=== PATIENT | male | born 1975 | race Hispanic/Latino ===

== ENCOUNTER 2017-09-27 17:47 | Inpatient (IN) | payer OTHER, SELFPAY ==
[2017-09-27] MEDS ORDERED: cloNIDine HCl 0.1 MG TAB ONE (18:23)
[2017-09-27 18:38] LABS: Absolute Lymphocytes (CBC) 2.3 K/uL (0.7-4.9); Absolute Neutrophil 7.6 K/uL (1.8-8.0); Basophils % 1.1 % (0-1.3); Eosinophils % 0.8 % (0-4.4); Hematocrit 41.1 % (39.6-49.0); Lymphocytes % 20.6 % (15.3-44.8); MCH 30.6 pg (27.0-35.0); MCV 87.8 fL (80-100); MPV 8.1 fL (7.6-11.3); RBC Red Blood Cell Count 4.68 M/uL (4.33-5.43)
[2017-09-27 18:46] LABS: Potassium 2.8 mEq/L (3.6-5.0)
--- NOTE | 2017-09-27 19:04 | RAD REPORT ---
EXAM DESCRIPTION: CT - Head Brain Wo Cont - 09/27/2017 6:43 pm CLINICAL HISTORY: Hypertension, headache COMPARISON: None. TECHNIQUE: Axial 5 mm thick images of the head were obtained without IV contrast. All CT scans are performed using dose optimization technique as appropriate and may include automated exposure control or mA/KV adjustment according to patient size. FINDINGS: No intracranial hemorrhage, mass, edema or shift of mid-line structures. No acute infarcti on changes seen. No abnormal extra-axial fluid collections. Ventricles are normal. Mastoid air cells and visualized portions of the paranasal sinuses are clear. No acute bony findings. IMPRESSION: Negative non-contrast CT head examination.
[2017-09-27] MEDS ORDERED: LABETALOL 20 MG/4ML SYRINGE IV ONE (19:20)
[2017-09-27] MEDS ORDERED: POTASSIUM CL SA 10 MEQ TAB PO ONE (19:20)
--- NOTE | 2017-09-27 19:23 | EDPHYS ---
Physician Documentation [facility] Name: Manjinder Vazquez Age: 42 yrs Sex: Male : 1975 Arrival Date: 09/27/2017 Time: 17:54 Bed 4 Private MD: ED Physician Mohamud Romero HPI: 09/27 18:31 This 42 yrs old Male presents to ER via Ambulatory with complaints of BP rn 260/[address] NEVAREZ. 18:31 + elevated blood pressure, headache, a couple of minutes of chest pressure, hasn't rn taken his lisinopril for 4 months. . Onset: The symptoms/episode began/occurred at an unknown time. Severity of symptoms: At their worst the symptoms were moderate. The patient has experienced similar episodes in the past. The patient has been recently seen by a physician:. Historical: - Allergies: 18:05 No Known Allergies; hb - Home Meds: 18:05 None [Active]; hb - PMHx: 18:05 Hypertension; hb - PSHx: 18:05 knee - LEFT; hb - Immunization history:: Adult Immunizations up to date. - Social history:: Smoking status: Patient uses tobacco products, denies chronic smoking, but will smoke occasionally. - Family history:: not pertinent. - Hospitalizations: : No recent hospitalization is reported. ROS: 18:31 Constitutional: Negative for fever, chills, and weight loss, Eyes: Negative for injury, rn pain, redness, and discharge, Neck: Negative for injury, pain, and swelling, Cardiovascular: Negative for palpitations, and edema, Respiratory: Negative for shortness of breath, cough, wheezing, and pleuritic chest pain, Abdomen/GI: Negative for abdominal pain, nausea, vomiting, diarrhea, and constipation, MS/Extremity: Negative for injury and deformity, Skin: Negative for injury, rash, and discoloration, Neuro: Negative for weakness, numbness, tingling, and seizure. Exam: 18:31 Constitutional: This is a well developed, well nourished patient who is awake, alert, rn and in no acute distress. Head/Face: Normocephalic, atraumatic. Eyes: Pupils equal round and reactive to light, extra-ocular motions intact. Lids and lashes normal. Conjunctiva and sclera are non-icteric and not injected. Cornea within normal limits. Periorbital areas with no swelling, redness, or edema. Neck: Trachea midline, no thyromegaly or masses palpated, and no cervical lymphadenopathy. Supple, full range of motion without nuchal rigidity, or vertebral point tenderness. No Meningismus. Cardiovascular: Regular rate and rhythm with a normal S1 and S2. No gallops, murmurs, or rubs. Normal PMI, no JVD. No pulse deficits. Respiratory: Lungs have equal breath sounds bilaterally, clear to auscultation and percussion. No rales, rhonchi or wheezes noted. No increased work of breathing, no retractions or nasal flaring. Abdomen/GI: Soft, non-tender, with normal bowel sounds. No distension or tympany. No guarding or rebound. No evidence of tenderness throughout. MS/ Extremity: Pulses equal, no cyanosis. Neurovascular intact. Full, normal range of motion. Equal circumference. Neuro: Awake and alert, GCS 15, oriented to person, place, time, and situation. Cranial nerves II-XII grossly intact. Motor strength 5/5 in all extremities. Sensory grossly intact. Cerebellar exam normal. Normal gait. Vital Signs: 18:05 BP 237 / 166; Pulse 88; Resp 16; Temp 97.9; Pulse Ox 100% on R/A; Weight 90.72 kg (R); hb Height 5 ft. 9 in. (175.26 cm); Pain 9/10; 18:59 BP 230 / 158; Pulse 85; Resp 18; Pulse Ox 97% ; sv 19:45 BP 198 / 126; Pulse 77; Resp 19; Pulse Ox 99% on R/A; ea 20:34 BP 170 / 131; Pulse 72; Resp 16; Pulse Ox 98% on R/A; Pain 4/10; ea 21:04 BP 166 / 130; Pulse 72; Resp 18; Temp 98(O); Pulse Ox 98% on R/A; ea 18:05 Body Mass Index 29.54 (90.72 kg, 175.26 cm) hb MDM: 18:11 Patient medically screened. rn 19:16 ED course: Notified Dr. Nevarez of admission.. rn 19:20 Differential Diagnosis malignant hypertension, renal failure. rn 19:20 Data reviewed: vital signs, nurses notes, lab test result(s), EKG, radiologic studies, rn CT scan, and as a result, I will admit patient. Counseling: I had a detailed discussion with the patient and/or guardian regarding: the historical points, exam findings, and any diagnostic results supporting the discharge/admit diagnosis, lab results, radiology results, the need for further work-up and treatment in the hospital. Response to treatment: the patient's symptoms have mildly improved after treatment, and as a result, I will admit patient. Admission orders: after a detailed discussion of the patient's condition and case, the admit orders are written by me. 09/27 18:21 Order name: CBC with Diff; Complete Time: 18:54 rn 09/27 18:21 Order name: Basic Metabolic Panel; Complete Time: 18:54 rn 09/27 18:21 Order name: CT Head Brain wo Cont; Complete Time: 19:13 rn 09/27 18:21 Order name: Troponin (emerg Dept Use Only); Complete Time: 18:54 09/27 19:06 Order name: Urine Dipstick--Ancillary (enter results) em 09/27 19:20 Order name: ETOH Level rn 09/27 18:21 Order name: IV Start; Complete Time: 18:22 rn 09/27 18:21 Order name: EKG; Complete Time: 18:22 rn 09/27 18:21 Order name: EKG - Nurse/Tech; Complete Time: 18:22 rn 09/27 19:02 Order name: XRAY Chest (1 view) rn 09/27 20:23 Order name: RAD EDMS Administered Medications: 09:21 Drug: Labetalol 5 mg Route: IVP; Infused Over: 2 mins; Site: right antecubital; ea 20:35 Follow up: Response: No change in condition; Blood pressure is lowered ea 18:29 Drug: cloNIDine 0.2 mg Route: PO; sv 19:05 Follow up: Response: No adverse reaction sv 19:20 Drug: Potassium Chloride 40 mEq Route: PO; ea 20:00 Follow up: Response: No adverse reaction ea Disposition: 09/27/17 19:22 Hospitalization ordered by Clinton Nevarez for Inpatient Admission. Preliminary diagnosis are Malignant Hypertension, Acute kidney failure. - Bed requested for Telemetry/MedSurg (Inpatient). - Status is Inpatient Admission. ea - Condition is Stable. - Problem is new. - Symptoms have improved. UTI on Admission? No Signatures: Dispatcher [employer] Jennifer Gil, RN Jazmin Altamirano, RN Mohamud Turcios MD MD rn Baxter, Heather, RN RN hb Antunez, Elena, RN RN ea Corrections: (The following items were deleted from the chart) 19:32 19:22 Hospitalization Ordered by Clinton Nevarez MD for Inpatient Admission. Preliminary diagnosis is Malignant Hypertension; Acute kidney failure. Bed requested for Telemetry/MedSurg (Inpatient). Status is Inpatient Admission. Condition is Stable. Problem is new. Symptoms have improved. UTI on Admission? No. rn 21:15 19:32 09/27/2017 19:22 Hospitalization Ordered by Clinton Nevarez MD for Inpatient ea Admission. Preliminary diagnosis is Malignant Hypertension; Acute kidney failure. Bed requested for Telemetry/MedSurg (Inpatient). Status is Inpatient Admission. Condition is Stable. Problem is new. Symptoms have improved. UTI on Admission? No. mw
--- NOTE | 2017-09-27 19:23 | ER ---
Nurse's Notes [facility] Name: Manjinder Vazquez Age: 42 yrs Sex: Male : 1975 Arrival Date: 09/27/2017 Time: 17:54 Bed 4 Private MD: Diagnosis: Malignant Hypertension;Acute kidney failure Presentation: 09/27 18:02 Presenting complaint: Patient states: Sent by Dr. Ba for BP 260/70 and headache. hb Hx HTN, has not taken medication in several months. 18:02 Method Of Arrival: Ambulatory 18:02 Transition of care: patient was received from another setting of care (ambulatory primary care physician practice), Dr. Nevarez. Onset of symptoms. 18:02 Acuity: THANIA 2 hb 18:20 Initial Sepsis Screen: Does the patient meet any 2 criteria? No. Patient's initial sv sepsis screen is negative. Does the patient have a suspected source of infection? No. Patient's initial sepsis screen is negative. Care prior to arrival: None. Historical: - Allergies: 18:05 No Known Allergies; hb - Home Meds: 18:05 None [Active]; hb - PMHx: 18:05 Hypertension; hb - PSHx: 18:05 knee - LEFT; hb - Immunization history:: Adult Immunizations up to date. - Social history:: Smoking status: Patient uses tobacco products, denies chronic smoking, but will smoke occasionally. - Family history:: not pertinent. - Hospitalizations: : No recent hospitalization is reported. Screenin:20 Abuse screen: Denies threats or abuse. Denies injuries from another. Nutritional sv screening: No deficits noted. Tuberculosis screening: No symptoms or risk factors identified. Fall Risk None identified. Assessment: 18:20 General: Appears in no apparent distress. uncomfortable, Behavior is calm, cooperative, sv appropriate for age. General: Reports that he lost a lot of weight months ago and decided to stop taking his BP medications because he thought he was better. Pain: Complains of pain in scalp Pain does not radiate. Pain currently is 9 out of 10 on a pain scale. Quality of pain is described as throbbing, Pain began "for about 2 weeks" Is continuous, Alleviated by nothing. Neuro: Level of Consciousness is awake, alert, obeys commands, Oriented to person, place, time, situation, Moves all extremities. Full function Gait is steady, Speech is normal, Facial symmetry appears normal, Facial symmetry: tongue is midline, Pupils are PERRLA, Reports headache occipital area, weakness since about 2 weeks Denies blurred vision dizziness, numbness. Cardiovascular: Patient's skin is warm and dry. Pulses are 3+ in right radial artery and left radial artery Rhythm is sinus rhythm Chest pain is denied. Respiratory: Airway is patent Respiratory effort is even, unlabored, Respiratory pattern is regular, symmetrical. GI: No signs and/or symptoms were reported involving the gastrointestinal system. : No signs and/or symptoms were reported regarding the genitourinary system. EENT: No signs and/or symptoms were reported regarding the EENT system. Derm: Skin is pink, warm \\T\\ dry. Musculoskeletal: No signs and/or symptoms reported regarding the musculoskeletal system. 19:15 General: Appears in no apparent distress. uncomfortable, Behavior is calm, cooperative, ea appropriate for age, Reports states he has not been taking his blood pressure medication like he is suppose to. Pain: Complains of pain in left side of the back of head, left temporal area, right side of the back of head and right temporal area Pain does not radiate. Pain currently is 7 out of 10 on a pain scale. Quality of pain is described as throbbing, Pain began pt reports it began about 2 weeks ago on and off Is continuous. Neuro: Level of Consciousness is awake, alert, obeys commands, Oriented to person, place, time, situation, Speech is normal, Reports headache occipital area, weakness since 2 weeks ago. Cardiovascular: Patient's skin is warm and dry. Pulses are palpable in right radial artery and left radial artery Rhythm is sinus rhythm Chest pain is denied. Respiratory: Airway is patent Respiratory effort is even, unlabored, Respiratory pattern is regular, symmetrical. GI: No signs and/or symptoms were reported involving the gastrointestinal system. : No signs and/or symptoms were reported regarding the genitourinary system. EENT: No signs and/or symptoms were reported regarding the EENT system. Derm: Skin is dry, Skin is normal, Skin temperature is warm. Musculoskeletal: No signs and/or symptoms reported regarding the musculoskeletal system. 20:36 Reassessment: Patient and/or family updated on plan of care and expected duration. Pain ea level reassessed. Patient is alert, oriented x 3, equal unlabored respirations, skin warm/dry/pink. 21:01 Reassessment: Patient and/or family updated on plan of care and expected duration. Pain ea level reassessed. Patient is alert, oriented x 3, equal unlabored respirations, skin warm/dry/pink. Report given to Cat RUIZ. Vital Signs: 18:05 BP 237 / 166; Pulse 88; Resp 16; Temp 97.9; Pulse Ox 100% on R/A; Weight 90.72 kg (R); hb Height 5 ft. 9 in. (175.26 cm); Pain 9/10; 18:59 BP 230 / 158; Pulse 85; Resp 18; Pulse Ox 97% ; sv 19:45 BP 198 / 126; Pulse 77; Resp 19; Pulse Ox 99% on R/A; ea 20:34 BP 170 / 131; Pulse 72; Resp 16; Pulse Ox 98% on R/A; Pain 4/10; ea 21:04 BP 166 / 130; Pulse 72; Resp 18; Temp 98(O); Pulse Ox 98% on R/A; ea 18:05 Body Mass Index 29.54 (90.72 kg, 175.26 cm) hb ED Course: 17:54 Patient arrived in ED. mr 18:05 Arm band placed on right wrist. hb 18:08 Triage completed. hb 18:09 Jennifer Moreno RN is Primary Nurse. sv 18:11 Mohamud Romero MD is Attending Physician. rn 18:20 Patient has correct armband on for positive identification. Placed in gown. Bed in low sv position. Side rails up X2. monitoring engineer on. Pulse ox on. NIBP on. Door closed. Warm blanket given. Head of bed elevated. 18:20 Initial lab(s) drawn, by ok, sent to lab. Inserted saline lock: 18 gauge in right sv antecubital area, using aseptic technique. Blood collected. Flushed right antecubital with 5 ml normal saline. 18:42 CT Head Brain wo Cont In Process Unspecified. EDMS 18:49 CT completed. Patient tolerated procedure well. Patient moved to CT. Patient moved back or from CT. 19:22 Clinton Nevarez MD is Hospitalizing Provider. rn 19:24 Report given to Joanne RUIZ and Abby RUIZ. sv 19:40 X-ray completed. Portable x-ray completed in exam room. Patient tolerated procedure mh1 well. 19:43 Primary Nurse role handed off by Jennifer Moreno RN 20:32 Abby Berger, RN is Primary Nurse. ea 21:05 No provider procedures requiring assistance completed. Patient admitted, IV remains in ea place. Administered Medications: 09:21 Drug: Labetalol 5 mg Route: IVP; Infused Over: 2 mins; Site: right antecubital; ea 20:35 Follow up: Response: No change in condition; Blood pressure is lowered ea 18:29 Drug: cloNIDine 0.2 mg Route: PO; sv 19:05 Follow up: Response: No adverse reaction sv 19:20 Drug: Potassium Chloride 40 mEq Route: PO; ea 20:00 Follow up: Response: No adverse reaction ea Outcome: 19:22 Decision to Hospitalize by Provider. rn 21:05 Admitted to Med/surg accompanied by nurse, via wheelchair, room 206, with chart, Report ea called to Cat RUIZ 21:05 Condition: stable 21:05 Instructed on the need for admit. 21:15 Patient left the ED. ea Signatures: Dispatcher [employer] EDMS Jennifer Moreno, RN RN Pam Bonds Jazmin Clayton 1 Mohamud Romero MD MD rn Baxter, Heather, RN RN hb Jordan, Nathan nj Antunez, Elena, JOSEPH RN ea Corrections: (The following items were deleted from the chart) 18:08 18:05 BP 167 / 166; Pulse 88bpm; Resp 16bpm; Pulse Ox 100% RA; Temp 97.9F; 90.72 kg hb Reported; Height 5 ft. 9 in.; BMI: 29.5; Pain 9/10; hb
[2017-09-27 19:31] LABS: Urine Blood 1+ (NEG); Urine Glucose TRACE (NEG); Urine Protein 3+ (NEG)
--- NOTE | 2017-09-27 20:23 | RAD REPORT ---
EXAM DESCRIPTION: RAD - Chest Single View - 09/27/2017 7:42 pm CLINICAL HISTORY: Chest pain, hypertension COMPARISON: None. TECHNIQUE: AP portable chest image was obtained 1931 hours . FINDINGS: No peripheral mass or consolidation. Interstitial markings are minimally prominent believe d to be baseline. Heart and vasculature are normal. No measurable pleural effusion and no pneumothora x. No gross bony abnormality seen. No acute aortic findings suspected. IMPRESSION: No acute cardiopulmonary process.
[2017-09-27] MEDS ORDERED: ACETAMINOPHEN 500 MG TAB PO PRN (21:23)
[2017-09-27] MEDS ORDERED: ONDANSETRON 4 MG/2 ML VIAL IV PRN (21:23)
[2017-09-27] MEDS: METOPROLOL TAR 50 MG TAB PO SCH (22:31)
[2017-09-28] MEDS: cloNIDine HCl 0.1 MG TAB PO PRN ×2 (01:30→07:07)
[2017-09-28 05:01] LABS: Absolute Lymphocytes (CBC) 1.6 K/uL (0.7-4.9); Absolute Monocytes 0.6 K/uL (0.1-1.3); Absolute Neutrophil 4.1 K/uL (1.8-8.0); Basophils % 1.3 % (0-1.3); Eosinophils % 2.2 % (0-4.4); Hematocrit 35.4 % (39.6-49.0); Lymphocytes % 24.6 % (15.3-44.8); MCH 30.4 pg (27.0-35.0); MCV 89.2 fL (80-100); MPV 8.4 fL (7.6-11.3); Monocytes % 9.5 % (3.3-12.3); RBC Red Blood Cell Count 3.97 M/uL (4.33-5.43)
[2017-09-28 05:40] LABS: Potassium 3.2 mEq/L (3.6-5.0)
--- NOTE | 2017-09-28 06:37 | EKG ---
Test Date: 2017-09-27 Test Time: 18:15:49 Hole Puncher Strap: NÉSTOR MEASUREMENT RESULTS: Intervals: Rate: 92 AK: 152 QRSD: 96 QT: 374 QTc: 462 [place]: P: 38 AK: 152 QRS: -9 T: 22 INTERPRETIVE STATEMENTS: Normal sinus rhythm Minimal voltage criteria for LVH, may be normal variant Nonspecific ST abnormality Abnormal ECG No previous ECG available for comparison Electronically Signed On 09-28-17 06:36:16 CDT by Jayson Wood
--- NOTE | 2017-09-28 08:34 | RAD REPORT ---
EXAM DESCRIPTION: US - Renal Ultrasound-Complete - 09/28/2017 7:46 am CLINICAL HISTORY: Hypertension COMPARISON: None. FINDINGS: The right kidney measures 11.4 x 4.6 x 5.1 cm. The left kidney measures 11.9 x 5.4 x 5.1 cm. Cortical thickness is normal. Both kidneys show a significant increase in renal cortical echogeni city typical for medical renal disease. No hydronephrosis or suspicious renal mass. Doppler evaluation shows a symmetric blood flow pattern to each kidney. This examination is not a ded icated renal vascular scan. IMPRESSION: Medical renal disease is evident. No hydronephrosis or suspicious mass.
[2017-09-28] MEDS: METOPROLOL TAR 50 MG TAB PO SCH ×2 (09:12→22:11)
[2017-09-28] MEDS: HYDRALAZINE HCL 25 MG TABLET PO SCH ×2 (09:13→22:12)
[2017-09-28] MEDS: AMLODIPINE 10 MG TAB PO SCH (09:13)
[2017-09-28] MEDS: ASPIRIN EC 81 MG TAB PO SCH (09:14)
--- NOTE | 2017-09-28 12:49 | ECHO ---
HEIGHT: 5 ft 9 in WEIGHT: 200 lb 0 oz DATE OF STUDY: 09/28/[address]: Keagan Vizcaino MD 2-DIMENSIONAL: YES M.MODE: YES DOPPLER: YES COLOR FLOW: YES TDS: PORTABLE: DEFINITY: BUBBLE STUDY: DIAGNOSIS: CHEST PAIN, HYPERTENSION CARDIAC HISTORY: CATHERIZATION: NO SURGERY: NO PROSTHETIC VALVE: NO PACEMAKER: NO MEASUREMENTS (cm) DIASTOLIC (NORMALS) SYSTOLIC (NORMALS) IVSd 1.3 (0.6-1.2) LA Diam 3.8 (1.9-4.0) LVEF 53% LVIDd 4.7 (3.5-5.7) LVIDs 3.4 (2.0-3.5) %FS 27% LVPWd 1.5 (0.6-1.2) Ao Diam 3.3 (2.0-3.7) 2 DIMENSIONAL ASSESSMENT: RIGHT ATRIUM: NORMAL LEFT ATRIUM: DILATED RIGHT VENTRICLE: NORMAL LEFT VENTRICLE: NORMAL TRICUSPID VALVE: NORMAL MITRAL VALVE: NORMAL PULMONIC VALVE: NORMAL AORTIC VALVE: NORMAL PERICARDIAL EFFUSION: NONE AORTIC ROOT: NORMAL LEFT VENTRICULAR WALL MOTION: NORMAL DOPPLER/COLOR FLOW: WITHIN NORMAL LIMITS COMMENTS: NORMAL LEFT VENTRICULAR EJECTION FRACTION. LEFT VENTRICULAR HYPERTROPHY. DILATED LEFT ATRIUM. TECHNOLOGIST: RAMYA REED
--- NOTE | 2017-09-28 15:28 | EKG ---
Test Date: 2017-09-28 Test Time: 09:44:21 Offset Plate Preparation Supervisor: LIZZIE MEASUREMENT RESULTS: Intervals: Rate: 65 NM: 168 QRSD: 104 QT: 448 QTc: 465 [place]: P: 45 NM: 168 QRS: 11 T: 53 INTERPRETIVE STATEMENTS: Normal sinus rhythm Minimal voltage criteria for LVH, may be normal variant ST elevation, consider early repolarization, pericarditis, or injury Nonspecific ST and T wave abnormality Prolonged QT Abnormal ECG Compared to ECG 09/27/2017 18:15:49 Prolonged QT interval now present ST (T wave) deviation still present Electronically Signed On 09-28-17 15:25:49 CDT by Keagan Vizcaino
[2017-09-28 16:18] LABS: Uric Acid 6.4 mg/dL (4.8-8.7)
[2017-09-28 17:07] LABS: UR CREAT 37.6 mg/dL; UR POTASSIUM 8.4 mEq/L (25-120); UR PROTEIN 45 mg/dl (< 10)
[2017-09-28 17:11] LABS: UR SODIUM < 10 mEq/L (27-287)
--- NOTE | 2017-09-29 00:22 | CON ---
Date of Consultation: 09/28/2017 Reason For Consultation: I saw the patient on 09/28/2017 because of malignant hypertension. History Of Present Illness: Mr. Vazquez is 42 and had a history of hypertension in the past, very non compliant, used to be on clonidine. Used to be on beta-blockers, and he came in with what sounds lik e very severe hypertension with blood pressure of 230/158. He had some chest pain with hi s blood pressure. No nausea, vomiting, diaphoresis, PND, orthopnea, pedal edema. troponi n 0.04. Creatinine of 2.2. Chest x-ray was negative. CT of his head was negative. EKG showed LVH. Past Medical History: Hypertension. Allergies: NONE. Review of Systems: Negative. Social History: Negative. Family History: Negative. Medications: His present medications include metoprolol 50 b.i.d. and clonidine p.r.n. Physical Examination: Vital Signs: Blood pressure as stated earlier was 230/158. HEENT: Negative. Neck: Supple, with no bruit. Chest: Clear. Cardiac: Revealed a regular rhythm and rate with an S4 gallop. Abdomen: Benign. Extremities: Revealed no clubbing, cyanosis, or edema. Diagnostic Data: As stated earlier. Impression And Plan: Malignant hypertension secondary to noncompliance and rebound because he stoppe d his medication, especially the clonidine. I would keep him on metoprolol 50 b.i.d. I would add hy dralazine and Norvasc to his regimen. Clonidine may be better to use only as needed because of his c ompliance issue. He has an echocardiogram and a renal Doppler pending. We will see what those show prior to making final decision. LUIS/RAFAEL Voice ID: [id number] Report ID: [id number]
[2017-09-29 06:28] LABS: Thyroid Stimulating Hormone 2.66 uIU/mL (0.34-5.60)
[2017-09-29] MEDS: AMLODIPINE 10 MG TAB PO SCH (08:50)
[2017-09-29] MEDS: ASPIRIN EC 81 MG TAB PO SCH (08:51)
[2017-09-29] MEDS: HYDRALAZINE HCL 25 MG TABLET PO SCH ×2 (08:51→20:56)
[2017-09-29] MEDS: METOPROLOL TAR 50 MG TAB PO SCH ×2 (08:51→20:56)
[2017-09-29] MEDS: NA CHLORIDE 0.9% 1,000 ML IV SCH (12:00)
[2017-09-29] MEDS: cloNIDine HCl 0.1 MG TAB PO PRN (16:40)
--- NOTE | 2017-09-30 02:47 | CON ---
Reason For Consultation: Hypertension, elevated BUN and creatinine. History Of Present Illness: This is a pleasant 42-year-old gentleman with significant past medical h istory of hypertension according to him, diagnosed 3 years back, poor compliant with medication. Camilla rasmussen stopped his medication 3 months back. Patient came to the hospital because of headache without any nausea, any vomiting. Found to have elevated blood pressure, systolic above 200, diastolic above 120. Primary workup showed elevated BUN and creatinine. For that reason, we have been consulted. Patient denied taking nonsteroidal nor IV contrast. Patient is feeling thirsty. Patient used to be on clonidine, but apparently according to him for the last few months he is not taking it. Past Medical History: Hypertension. Social History: Active smoker. Active alcohol. Denies drug abuse. Family History: Positive for hypertension. Past Surgical History: Negative. Allergies: NO KNOWN DRUG ALLERGIES. Review of Systems: Head and Neck: Has headache. GI: Poor intake. : No polyuria. No dysuria. No hematuria. FAMILY EDUCATOR: Not applicable. Respiratory: No shortness of breath. Cardiovascular: No leg swelling. Endocrine: No polydipsia. Skin: No rash. Physical Examination: Vital Signs: When I saw the patient, blood pressure 143/96, pulse of 68, afebrile. Patient had good urine output of 1600 over the last 12 hours. Chest: Clear to auscultation. Heart: S1, S2. Regular. No murmur. No gallop. Abdomen: Soft, nontender. Extremities: Trace edema. Laboratory Data: Sodium 138, potassium 3.2, bicarb 31, BUN 26, creatinine 2.2, calcium 8.8. Cardiac enzyme negative. CK 177. Cortisol of 10. TSH of 2.6. WBC 6.6, H and H 12/35.4, platelets 205. U rinalysis, specific gravity of 10.20. Total protein of 45. Creatinine 37. Sodium less than 10, pot assium 8.3. Plasma alcohol level less than 10. Assessment And Plan: Acute kidney injury on chronic kidney disease, normal-sized kidney, proteinuric , nonnephrotic, possible toxic acute tubular necrosis secondary to sepsis. Possible rhabdo. Obstruc tion has been ruled out. Mostly, he has underlying disease of hypertension, nephrosclerosis. 1.Given the acute kidney injury, I will hold on any SAVAGE inhibitor or ARB. 2.We are going to plan to have waiting by Wednesday. I am going to need to go by some right now, so I can I adjust it. We will monitor. 3.I going to go ahead and send for full workup including the protein, creatinine, PTH to evaluate th e chronicity. There is no significant proteinuria and there is no anemia. I doubt to be any light c ya disease. We will follow up. 4.Hypertension, given the hypokalemia, alkalosis, and in the absence of any Aldactone, I am going to send for plasma renin activity and aldosterone to rule out any primary hypertension secondary to eit her renal artery stenosis or ARB. We will follow up. 5.Urinary tract infection. Continue current antibiotic. We will follow up with the primary. Current Medications: 1.Amlodipine. 2.Clonidine 0.1 p.r.n. 3.Hydralazine 50. 4.Metoprolol 50. 5.Tylenol. Thank you Dr Bonilla for allowing us to participate in the care of your patient. SAMMI Voice ID: [id number] Report ID: [id number]
[2017-09-30 03:18] LABS: UR POTASSIUM 15.2 mEq/L (25-120)
--- NOTE | 2017-09-30 04:21 | HP ---
Date of Admission: 09/27/2017 Chief Complaint: Malignant hypertension. History Of Present Illness: The patient presented to the office for a complaint of headache and prob able blood pressure problem. He had this blood pressure problem, hypertensive approximately a year a go, at which time he was put on medication. He stated he had not taken his medicines for a number of months now. He was feeling relatively okay, working out of the area and then he started getting a h eadache. He had not checked his blood pressure but the headache became severe enough that he was con cerned and that is why he presented to the office at which time two blood pressures were repeated and both were markedly elevated at 250/165 on one occasion and 270/160 on the second occasion. Due to th is, he was sent to the ER for aggressive care and probable admission. Past Social History: The patient has a history of alcohol intake, which he states he has cut down co nsiderably since his episode of hypertension last year otherwise, he has been in good general health. Family History: Questionable for hypertension. Social History: As above. Physical Examination: General: on examination patient is a middle-aged male, obviously uncomfortable. Vital Signs: The blood pressure is markedly elevated with the remainder of his vital signs normal. Head and neck: Normocephalic. Pupils are equal, reactive to light and accommodation. Fundi negativ e. Trachea midline. Thyroid not palpable. ENT: Negative. Chest: Clear to percussion and auscultation. Cardiovascular: PMI midclavicular line. Heart: Sounds normal. Peripheral pulses present and equal bilaterally. Abdomen: No organomegaly. Bowel sounds present. Extremities: Good tone and movement bilaterally. Reflexes physiologic. Rectal: Deferred. Impression: Malignant hypertension. Plan: Patient will be admitted, observed, treated with p.r.n. clonidine and various blood pressure m edicine in attempt to lower the pressure to reasonable level. He will require some IV beta blockers and clonidine in the ER. Cardiology will also be consulted. Blood pressure is now improved consider ably, although still not back to what is considered normal. He has been seen by Nephrology, workup e nsued which showed some renal abnormalities secondary to the hypertension. HR/MODL Voice ID: [id number]
[2017-09-30 05:54] LABS: Albumin 2.8 g/dL (3.2-5.5); Phosphorus 3.5 mg/dL (2.5-4.3); Potassium 3.8 mEq/L (3.6-5.0)
[2017-09-30] MEDS: ASPIRIN EC 81 MG TAB PO SCH (09:32)
[2017-09-30] MEDS: METOPROLOL TAR 50 MG TAB PO SCH ×2 (09:32→21:43)
[2017-09-30] MEDS: NA CHLORIDE 0.9% 1,000 ML IV SCH (09:32)
[2017-09-30] MEDS: HYDRALAZINE HCL 25 MG TABLET PO SCH ×2 (09:32→21:44)
[2017-09-30] MEDS: AMLODIPINE 10 MG TAB PO SCH (09:32)
[2017-09-30] MEDS: SPIRONOLACTONE 25 MG TABLET PO SCH (09:32)
[2017-09-30 11:15] LABS: UR POTASSIUM 17.3 mEq/L (25-120)
--- NOTE | 2017-09-30 16:45 | DS ---
Date of Discharge: 09/30/2017 Consultants: Dr. Vizcaino, Cardiology; Dr. Blancas, Nephrology. Primary Care Physician: Dr. Nevarez. Admitting Diagnosis: Malignant hypertension. Discharge Diagnoses: 1.Malignant hypertension. 2.Acute on chronic kidney disease. 3.Obesity, BMI 29.5. Hospital Course: The patient is a 42-year-old male, who comes into the hospital for malignant hypert ension. He was sent to Dr. Nevarez's office for complaint of headache. His blood pressure was found to be markedly elevated on 250 to 165 and 270/160. He was sent to the ER for further evaluation and treatment. The patient was admitted, started on IV medications to lower his blood pressure. The stevo crouch was seen by Cardiology and Nephrology. Echocardiogram was done, which showed left ventricular hypertrophy, otherwise ejection fraction was 53%. The patient had workup done for acute kidney injur y. Renal ultrasound was also done, which showed mild renal disease evident. No hydronephrosis or mejía spicious mass. The patient's home medications were adjusted. The patient's blood pressure improved. His white count normalized. His electrolytes were corrected. His creatinine improved. The mayela t was then cleared for discharge from financial consultant's standpoint. He was able to ambulate, tolerating d iet. Medications: As per medication reconciliation list. Followup: Follow up with primary care physician, Dr. Nevarez in 2-3 days. The patient was being cov ered by the hospitalist service while he is out of town. Follow up with cooking instructor, Dr. Wood in 2 weeks. Follow up with supervisor furnace room, Dr. Blancas in 2 weeks. Return to ER for worsening condition . Diet: Renal. Activity: As tolerated. Total time spent discharging the patient was 31 minutes. Physical Examination: General: Awake, alert, oriented, no acute distress. CV: S1, S2. No murmurs. Respiratory: Moving air well bilaterally. Abdomen: Soft, nontender, nondistended. Positive bowel sounds. Extremities: No clubbing, cyanosis, edema. Neurologic: Nonfocal. SA/MODL Voice ID: [id number] Report ID: [id number]
[2017-09-30 19:05] LABS: Uric Acid 5.2 mg/dL (4.8-8.7)
[2017-09-30 19:50] LABS: Urine Appearance CLEAR; Urine Bilirubin NEGATIVE (NEG); Urine Blood NEGATIVE (NEG); Urine Color YELLOW; Urine Glucose TRACE (NEG); Urine Protein 2+ (NEG); Urine Urobilinogen 0.2 mg/dL (0.2-1.0); Urine pH 7.5 (5.0-7.0)
[2017-09-30 22:16] LABS: Urine Bacteria <20 /HPF (NONE SEEN); Urine Culture Reflex Order NOT NEEDED; Urine RBC <5 /HPF (NONE SEEN)
--- NOTE | 2017-10-01 00:15 | PN ---
Date of Progress Note: 09/30/2017 Chief Complaint: Elevated BUN and creatinine, malignant hypertension. History Of Present Illness: The patient presented to the hospital because of severe hypertension, generalized weakness. He was started on blood pressure medication. Apparently, he developed severe hypertensive episode due to rebound from clonidine withdrawal secondary to noncompliance. The patient was complaining of headache, but he did not have nausea or vomiting. Systolic blood pressure was over 200 and diastolic over 120. Blood pressure has been improving with current treatment. He was found to have elevated BUN and creatinine. He has nonoliguric urine output and does not have metabolic acidosis. He was found to have hypokalemia. Apparently, on previous occasion, he was to take spironolactone. On arrival to the hospital, potassium level was 2.8. The patient received replacement and potassium improved to 3.8. Spironolactone was resumed and the patient had cortisol and aldosterone evaluated and results are pending. The patient had a kidney ultrasound done, it did not show hydronephrosis. Renal artery Doppler was ordered and results are not back yet. Review of Systems: Denies fever or chills. Physical Examination: Lungs: Clear to auscultation bilaterally. Heart: S1, S2. Abdomen: Soft, benign. Extremities: No edema. Imaging: Right kidney 11.4 cm, left kidney 11.9 cm. Cortical thickness is within normal limits. Both kidneys show significant increase in renal echogenicity, typical for medical renal disease. Doppler evaluation showed symmetric flow pattern to each kidney. Examination is not dedicated renal vascular scan, and because of that, dedicated renal vascular scan to rule out renal artery stenosis. Laboratory Work: Sodium 140, potassium 3.8, chloride 104, CO2 of 31, BUN 29, creatinine 2.09, estimated GFR 35, albumin 2.8. Impression And Plan: The patient presented to the hospital with severe hypertension. Renal ultrasound showed increased echogenicity corresponding with chronic kidney disease. The patient was found to have hypoalbuminemia and lab work was ordered to rule out nephrotic syndrome and check for monoclonal gammopathy of unknown significance. Serology tests were ordered to rule out hepatitis and related glomerulonephritis, HIV nephropathy, as well as to screen for active urinary sediment. Severe hypertension. Adjust blood pressure medication for adequate blood pressure control with gradual adjustment of medication. The patient will need comprehensive workup for abnormal BUN and creatinine to rule out glomerulonephritis. The patient may need renal biopsy. Serology workup was ordered and pending. Continue IV fluids and p.o. hydration. Monitor renal panel and electrolytes. I spent total 36 min including 26 min to coordinate care plan. REFUGIO/RAFAEL Voice ID: [id number] Report ID: [id number] MTDD
[2017-10-01] MEDS: NA CHLORIDE 0.9% 1,000 ML IV SCH (04:46)
[2017-10-01 05:12] LABS: Phosphorus 2.9 mg/dL (2.5-4.3); Potassium 4.6 mEq/L (3.6-5.0)
[2017-10-01] MEDS: ASPIRIN EC 81 MG TAB PO SCH (08:57)
[2017-10-01] MEDS: METOPROLOL TAR 50 MG TAB PO SCH (08:57)
[2017-10-01] MEDS: SPIRONOLACTONE 25 MG TABLET PO SCH (08:57)
[2017-10-01] MEDS: AMLODIPINE 10 MG TAB PO SCH (08:57)
[2017-10-01] MEDS: HYDRALAZINE HCL 25 MG TABLET PO SCH (08:57)
--- NOTE | 2017-10-01 11:15 | RAD REPORT ---
EXAM DESCRIPTION: - Abdomen Pelvis Scan US - 10/01/2017 10:43 am CLINICAL HISTORY: Malignant hypertension. COMPARISON: None. FINDINGS: The right kidney measures 12 cm with an increased echotexture. The left kidney measures 11 cm with an increased echotexture. Hydronephrosis is not seen. The velocity of the right renal artery equals 48 cm/sec. The velocity of the left renal artery equals 49 cm/sec. Renal artery aorta ratios are within normal l imits. IMPRESSION: 1. Increased renal echotexture consistent with parenchymal disease. 2. No hydronephrosis. 3. No sonographic evidence of renal arterial stenosis.
--- NOTE | 2017-10-01 13:52 | PN ---
Date of Progress Note: 10/01/2017 Subjective: The patient seen and examined, chart reviewed, and case discussed with RN. The patient was discharged yesterday. However, nephrology wished to do a renal artery Doppler, therefore, the pa tient was held. A 24-hour urine results also pending. Review of Systems: Negative except as above. Medications: Reviewed. Physical Examination: Vital Signs: Temperature 98.1, heart rate 72, blood pressure 170/97, respirations 16, and O2 98% on room air. General: Awake, alert, oriented x3, not in any acute distress. Obese male. CV: S1, S2. No murmurs. Regular rate and rhythm. Peripheral pulses present bilaterally. Respiratory: Moving air well bilaterally. No wheezing. No stridor. No use of accessory muscles Ga strointestinal: Abdomen is soft, nontender, nondistended. Positive bowel sounds. Extremities: No clubbing, cyanosis, edema. Neurologic: Nonfocal. Laboratory Data: Sodium 139, potassium 4.2, chloride 105, CO2 30, BUN 25, creatinine 1.94, glucose 1 08, calcium 8.8, and albumin 3. Renal artery ultrasound is pending. Assessment And Plan: A 42-year-old male with; 1.Malignant hypertension, improved, on multiple medications. Renal Doppler ultrasound pending. 2.Severe chronic kidney disease. Monitor creatinine, improving. 3.Obesity, body mass index 29.5. 4.Hypertensive heart disease. Echo shows ventricular hypertrophy. /RAFAEL Voice ID: [id number] Report ID: [id number]
--- NOTE | 2017-10-01 23:13 | PN ---
Date of Progress Note: 10/01/2017 Subjective: The patient is doing well. No nausea. No vomiting. Blood pressure has been better con trolled. Physical Examination: Vital Signs: Blood pressure 147/83, pulse of 75, afebrile. Chest: Clear to auscultation. Heart: S1, S2. Regular. Abdomen: Soft, nontender. Extremities: No edema. Laboratory Data: WBC 6.6, H and H of 12/35.4, and platelets 205. Sodium 139, potassium 4.6, bicarb 30, BUN 25, creatinine 1.9, and GFR of 38. Current Medications: The patient is on include; 1.Clonidine p.r.n. 2.Amlodipine 10 mg. 3.Aspirin. 4.Hydralazine 75 b.i.d. 5.Zofran. 6.Metoprolol 50 b.i.d. Assessment And Plan: 1.Acute kidney injury/chronic kidney disease secondary to hypertension, nephrosclerosis, normal volu me. Proteinuric, nonnephrotic. I am going to go ahead and continue to monitor the patient. Renal a rtery stenosis was negative workup. 2.Hypertension, mostly secondary hypertension. Transtubular potassium gradient compatible with hype raldosteronism. Waiting for renin plasma activity and aldosterone serum, and we will follow up as ou tpatient. Continue current medications. Consider to avoid clonidine to avoid any rebound. 3.Hypokalemia, status post supplement, resolved. Case was discussed with the patient who verbalized understanding. SAMMI Voice ID: [id number] Report ID: [id number]
[2017-10-04 11:02] LABS: HIV 1/2 Antibody Diff Not indicated.; HIV AG/AB 4TH GEN Non-reactive (Non-reactive)
[2017-10-04 11:47] LABS: Urine 24HR Volume Metan 4850 mL
[2017-10-04 17:09] LABS: P-ANCA Anti-Myeloperoxidase Ab <1.0 AI (<1.0)
[2017-10-05 18:25] LABS: Albumin, (SPE) 3.3 g/dL (3.8-4.8); Alpha-1-Globulins 0.3 g/dL (0.2-0.3); Alpha-2-Globulins 0.6 g/dL (0.5-0.9); Gamma Globulins 1.2 g/dL (0.8-1.7); INTERPRETATION REPORT
[2017-10-06 02:39] LABS: HBsAG Nonreactive (Nonreactive); Hepatitis A IgM Antibody Nonreactive
== END 2017-10-01 16:53 | disposition home or self-care (01) | DRG 305 ==
LOC: ER 17:47 → ERHOLD 19:32 → 2ND 20:35
PROVIDERS: ADMIT Family Medicine; ATTEND Family Medicine
DX: I13.10 Hypertensive heart and chronic kidney disease without heart failure, with stage 1 through stage 4 chronic kidney disease, or unspecified chronic kidney disease (principal); N17.9 Acute kidney failure, unspecified; N18.9 Chronic kidney disease, unspecified; E87.6 Hypokalemia; E66.9 Obesity, unspecified; Z68.29 Body mass index [BMI] 29.0-29.9, adult; Z91.14 Patient's other noncompliance with medication regimen; E88.09 Other disorders of plasma-protein metabolism, not elsewhere classified; E26.9 Hyperaldosteronism, unspecified
CPT/HCPCS: 36415; 70450; 71045; 76770; 80048; 80069; 80074; 80320; 81001; 81003; 82088; 82533; 82550; 82570; 83835; 83935; 83970; 84132; 84156; 84165; 84244; 84300; 84443; 84484; 84550; 85025; 86021; 86038; 86334; 86335; 87389; 93005; 93306; 93975; 96374; 99285; J7030

== ENCOUNTER 2019-02-13 07:33 | Inpatient (IN) | payer SELFPAY ==
[2019-02-13] MEDS ORDERED: LABETALOL 20 MG/4ML SYRINGE IV ONE (08:12)
[2019-02-13] MEDS ORDERED: ONDANSETRON 4 MG/2 ML VIAL ONE (08:12)
[2019-02-13 08:54] LABS: Protime INR 1.04
[2019-02-13 08:59] LABS: Absolute Lymphocytes (CBC) 1.7 K/uL (0.7-4.9); Basophils % 0.7 % (0-1.3); Hematocrit 34.6 % (39.6-49.0); MPV 8.6 fL (7.6-11.3)
[2019-02-13 09:08] LABS: Troponin (Emerg Dept Use Only) 0.15 ng/mL (0.0-0.045)
[2019-02-13 09:09] LABS: Potassium 2.8 mmol/L (3.5-5.1)
[2019-02-13] MEDS ORDERED: KCL 20 MEQ/100 mL IVPB 20 MEQ/100 ML BAG IV ONE (09:37)
[2019-02-13] MEDS ORDERED: ASPIRIN 81 MG CHEWABLE TABLET ONE (09:37)
[2019-02-13] MEDS ORDERED: ONDANSETRON 4 MG/2 ML VIAL IV PRN (11:25)
[2019-02-13 12:30] LABS: Urine Blood 2+ (NEG); Urine Glucose TRACE (NEG); Urine Protein 3+ (NEG); Urine Specific Gravity 1.025 (1.005-1.030)
--- NOTE | 2019-02-13 12:30 | RAD REPORT ---
EXAM DESCRIPTION: CT HEAD/BRAIN W/O CONTRAST CLINICAL HISTORY: Headache, drowsiness. COMPARISON: 09/27/2017 TECHNIQUE: Axial computed tomography of the head/brain without intravenous contrast. Sagittal and coronal reformatted images were created and reviewed. This exam was performed according to our departmental dose-optimization program, which includes automated exposure control, adjustment of the mA and/or kV according to patient size and/or use of iterative reconstruction technique. FINDINGS: No acute intracranial hemorrhage, hydrocephalus or midline shift. No evidence of extra axial fluid collection. No pathologic areas of brain edema. Paranasal sinuses and mastoids are clear. The calvarium is intact. IMPRESSION: No acute intracranial abnormality is detected.
--- NOTE | 2019-02-13 12:50 | P.HP ---
Certification for Inpatient Patient admitted to: Inpatient With expected LOS: >2 Midnights Practitioner: I am a practitioner with admitting privileges, knowledge of patient current condition, hospital course, and medical plan of care. Services: Services provided to patient in accordance with Admission requirements found in Title 42 Section 412.3 of the Code of Federal Regulations Patient History Date of Service: 02/13/19 Reason for admission: Malignant hypertension History of Present Illness: This is a 43-year-old male with a past medical history of hypertension presented to the emergency room with complaints of headache, chest pain and nausea. Per patient, for past couple days he has not been feeling well has been complaining of headache and some chest pain, shortness of breath along with nausea. He could not sleep last night, he felt an easy and anxious. He therefore brought himself to the emergency room. He states that he is not taking his medications for the past 6 +months because he ran out. He does have a history of noncompliance. He was seen at her facility in September of 2017 for similar symptoms and complaints. He was discharged on 4 different blood pressure medications at that time. He states he took it for few months, and when he ran out he did not take any more medications. Patient does have a history of alcohol intake, he has cut down. States that he does drink alcohol about every weekend. Last drink was last night. He is also a former smoker, he has quit 1 year ago. He denies any vision changes, lightheadedness/dizziness, syncopal or presyncopal episode, GI or complaints. In the ER, his blood pressure was elevated to 200s/130s. Labs remarkable for potassium low at 2 planning, creatinine elevated to 5.09 and troponin elevated to 0.15. CT head was negative. Chest x-ray was negative. Patient received IV labetalol 10 mg x1 in the ER. The time of my exam, patient was alert oriented x3, in no acute distress. His blood pressures were still elevated consistently above 200/100s. Therefore he was admitted to the ICU Allergies No Known Allergies Allergy (Verified 09/27/17 22:34) Home medications list reviewed: Yes Home Medications: Amlodipine [Norvasc*] 10 mg PO DAILY #30 tab 09/30/17 Hydralazine [Apresoline*] 75 mg PO BID #90 tab 09/30/17 Metoprolol Tartrate [Lopressor*] 50 mg PO BID #60 tab 09/30/17 Spironolactone [Aldactone*] 25 mg PO DAILY #30 tab 09/30/17 - Past Medical/Surgical History Diabetic: No -: HTN -: Left knee sx - Family History Father History Unknown: Yes -: Heart disease, Diabetes - Social History Alcohol use: Yes CD- Drugs: No Caffeine use: Yes Review of Systems 10-point ROS is otherwise unremarkable Physical Examination - Physical Exam General: Alert, In no apparent distress, Oriented x3 HEENT: Atraumatic, PERRLA, Mucous membr. moist/pink, EOMI, Sclerae nonicteric Neck: Supple, 2+ carotid pulse no bruit, No LAD, Without JVD or thyroid abnormality Respiratory: Clear to auscultation bilaterally, Normal air movement Cardiovascular: Regular rate/rhythm, Normal S1 S2 Gastrointestinal: Normal bowel sounds, No tenderness Musculoskeletal: No tenderness Integumentary: No rashes Neurological: Normal gait, Normal speech, Normal strength at 5/5 x4 extr, Normal tone, Normal affect Lymphatics: No axilla or inguinal lymphadenopathy - Studies Laboratory Data (last 24 hrs) 02/13/19 08:10: WBC 10.5, Hgb 12.0 L, Hct 34.6 L, Plt Count 203 02/13/19 08:10: Sodium 140, Potassium 2.8 L*, BUN 50 H, Creatinine 5.09 H*, Glucose 101 02/13/19 08:10: PT 12.3, INR 1.04, APTT 31.5 Assessment and Plan - Problems (Diagnosis) (1) Hypertensive emergency Current Visit: Yes Status: Acute Plan: With end-organ damage: elevated creatinine and troponin (2) Acute kidney injury Current Visit: Yes Status: Acute (3) Elevated troponin Current Visit: Yes Status: Acute (4) Noncompliance Current Visit: Yes Status: Acute (5) Obese Current Visit: Yes Status: Acute (6) Hypokalemia Current Visit: Yes Status: Acute - Plan Admit patient to ICU -start patient on hydralazine 50 mg b.i.d., metoprolol 50 mg b.i.d. and amlodipine 10 mg. -Cardiology consulted, recommendations appreciated -nephrology consulted, recommendations appreciated -troponins elevated likely secondary to hypertensive emergency -creatinine elevated, compared to 1 year ago. This could be secondary to hypertension versus acute on chronic kidney disease? -monitor labs -monitor vital signs. -adjust blood pressure medications as needed. -counseled on medication compliance DVT prophylaxis: Lovenox GI prophylaxis: None Diet: Heart healthy Disposition: Admit to ICU, pending blood pressure improvement. - Advance Directives Does patient have a Living Will: No Does patient have a Durable POA for Healthcare: No Critical Care: Yes Time Spent Managing Pts Care (In Minutes): 55
[2019-02-13] MEDS: HYDRALAZINE HCL 25 MG TABLET PO SCH ×2 (12:54→21:04)
[2019-02-13] MEDS: METOPROLOL TAR 50 MG TAB PO SCH ×2 (12:54→21:04)
[2019-02-13] MEDS: AMLODIPINE 10 MG TAB PO SCH (12:54)
--- NOTE | 2019-02-13 14:16 | RAD REPORT ---
EXAM DESCRIPTION: RAD CHEST SINGLE VIEW CLINICAL HISTORY: Chest pain. COMPARISON: 09/27/2017 TECHNIQUE: Single view chest. FINDINGS: The lungs appear grossly clear. The heart is upper limits of normal in size. No pathologic bony process. IMPRESSION: No acute intrathoracic abnormality.
[2019-02-13] MEDS: MORPHINE 4 MG/ML SYR IV PRN (16:28)
[2019-02-13] MEDS ORDERED: HYDRALAZINE HCL 20 MG/ML VIAL IV ONE (16:51)
[2019-02-13] MEDS: ACETAMINOPHEN 500 MG TAB PO PRN (21:04)
[2019-02-13] MEDS: HEPARIN 5000 UNIT/ML 1 ML VIAL SQ SCH (21:05)
--- NOTE | 2019-02-13 21:58 | CON ---
Identification: A 43-year-old man. History Of Present Illness: Mr. Vazquez came to the hospital because of a headache. He was found to be extremely hypertensive and an acute kidney injury, renal failure. He has been in the ICU. His bl ood pressure still elevated, but decreased quite a bit from when he came in. Right now, he is prescr ibed metoprolol, hydralazine, and amlodipine. I am going to recommend we give some more hydralazine intravenously to try and get his systolic less than 150, diastolic less than 100. The patient has ne ramses had myocardial infarction or stroke was not having anything that sounds like angina. He really h ad a headache and lethargy. Medications: Outpatient medications have been none. He has not been taking any of the medicines benny t were prescribed to him. He has been treated for hypertension for several years, but simply lets th e prescription ran out. Social History: He does not use tobacco anymore. He was a tobacco user until a year ago. He was a heavy alcohol user until a year ago when he cut down dramatically. Allergies: HE HAS NO ALLERGIES. Physical Examination: General: He is 5 feet 9 inches, 204 pounds. Alert, oriented, pleasant, not in distress. Lungs: Clear. Heart: Regular rate and rhythm. No murmur or gallop. Abdomen: Soft. Extremities: Normal. No cyanosis, clubbing, or edema. Distal pulses palpable. Recommendations: I would recommend we give a little bit more hydralazine. Check serial labs. Hopef ully, renal function will improve on his present regimen with lower blood pressure hydration. Nephrology consult is pending. GAETANO/RAFAEL Voice ID: [id number] Report ID: [id number]
[2019-02-14] MEDS: TRAMADOL HCL 50 MG TAB PO PRN ×2 (00:39→17:40)
--- NOTE | 2019-02-14 01:17 | CON ---
Duplicate Date of Consultation: dictated MTDD
--- NOTE | 2019-02-14 04:44 | CON ---
Date of Consultation: 02/13/2019 Chief Complaint: Acute kidney injury, severe, associated with hypertensive emergency; severe hypertension; uncontrolled hypertension. Patient is admitted to ICU and started on IV medication for hypertensive crisis. He came to the hospital because of headache. He was found to have extremely elevated blood pressure and acute kidney injury. Patient has acute kidney injury, nonoliguric. He denies previous history of kidney problems, although he has long-term hypertension. He apparently ran out of medication several months ago and did not follow up with primary doctor to write new medication. Patient denies history of heart disease, stroke, and denies any history of chest pain. Blood work obtained in the emergency room showed elevated creatinine and BUN, and Nephrology consultation was requested for acute kidney injury. History Of Present Illness: The patient is a 43-year-old man with a history of hypertension, presented to emergency room with complaints of headache and chest pain and nausea. Chest pain resolved. Patient currently denies nausea and headache is somewhat improving with blood pressure control. Prior to this admission, patient was complaining of nausea, vomiting, and anxiety. Apparently , he has not been taking blood pressure medication for 6 months because he ran out. Previously, he was seen in September 2017, in this facility because of similar symptoms and complaints. He was discharged on 4 different medications at that time for blood pressure control. He denies alcohol intake. He drinks socially , and he quit smoking 1 year ago. In the emergency room, blood pressure was elevated up to 200/130. Lab work showed creatinine of 5.09. Troponin 0.15. CT scan of the head was negative. Chest x-ray was negative. Patient received IV labetalol in the emergency room, and IV hydralazine. Review of Systems: Constitutional: Denies fever or chills. Eyes: Denies vision changes. Ears, Nose, Mouth, and Throat: Denies sore throat and earache. Respiratory: Denies PND or orthopnea. Cardiovascular: Complaining of chest pain. Denies syncope. GI: Has nausea. Denies melena or hematemesis. : Denies dysuria, hematuria. All other systems reviewed and all are negative. Past Medical History: Hypertension. Denies history of diabetes, stroke, heart failure. Social History: Alcohol socially. Denies drugs. Quit tobacco 1 year ago. Family History: No kidney disease in the family. Physical Examination: General: Patient is alert, oriented x3. Normal affect. Eyes: Anicteric sclerae. EOMI. Ears, Nose, Mouth and Throat: Oral mucosa moist. No pallor. Neck: Supple. No bruits. Lungs: Clear to auscultation bilaterally. No wheezing. No rhonchi. Heart: S1, S2. No pericardial friction rub. Abdomen: Soft, benign, nontender. Obese. No rebound. No guarding. Extremities: No edema. No clubbing. No cyanosis. SKIN : warm and dry no skin rashes NEUROLOGIC : no tremor , CN intact Laboratory Data: Hemoglobin is 12, WBC 10.5, Sodium 140, potassium 2.8, BUN 50 , creatinine 5.09, glucose 108. Impression And Plan: 1. Hypertensive emergency, malignant hypertension. Continue blood pressure medication. Patient was found to have hypokalemia. Patient will need to be ruled out for hyperaldosteronism and renal artery stenosis. Patient was found to have elevated troponin, is undergoing cardiac workup. 2. Acute kidney injury, severe. Patient will have IV fluids when blood pressure is improving and patient may need to start dialysis in case renal function does not improve. On previous occasion in September 2017, creatinine was of 1.94 and BUN 25. Apparently, patient denies any history of kidney disease and he did not follow up with drosser. RAMO Voice ID: [id number] Report ID: [id number] MTDD
[2019-02-14] MEDS: ACETAMINOPHEN 500 MG TAB PO PRN ×2 (05:06→16:34)
[2019-02-14 05:18] LABS: Absolute Lymphocytes (CBC) 1.2 K/uL (0.7-4.9); Basophils % 0.8 % (0-1.3); Hematocrit 31.1 % (39.6-49.0); Lymphocytes % 14.1 % (15.3-44.8); MPV 8.5 fL (7.6-11.3); RBC Red Blood Cell Count 3.58 M/uL (4.33-5.43)
[2019-02-14 05:40] LABS: Magnesium 2.1 mg/dL (1.8-2.4)
[2019-02-14 05:43] LABS: Potassium 2.8 mmol/L (3.5-5.1)
--- NOTE | 2019-02-14 07:29 | EKG ---
Test Date: 2019-02-13 Test Time: 08:04:26 Petrol Tanker Driver: LIZZIE MEASUREMENT RESULTS: Intervals: Rate: 101 AK: 156 QRSD: 104 QT: 386 QTc: 500 [place]: P: 63 AK: 156 QRS: 16 T: 79 INTERPRETIVE STATEMENTS: Sinus tachycardia Voltage criteria for left ventricular hypertrophy Abnormal ECG Compared to ECG 09/28/2017 09:44:21 Sinus rhythm no longer present ST (T wave) deviation no longer present Prolonged QT interval no longer present Electronically Signed On 02-14-19 07:28:24 CDT by Jayson Wood
[2019-02-14] MEDS: HYDRALAZINE HCL 25 MG TABLET PO SCH ×5 (08:04→20:44)
[2019-02-14] MEDS: ASPIRIN EC 81 MG TAB PO SCH (08:04)
[2019-02-14] MEDS: HEPARIN 5000 UNIT/ML 1 ML VIAL SQ SCH ×2 (08:04→20:45)
[2019-02-14] MEDS: AMLODIPINE 10 MG TAB PO SCH (08:04)
[2019-02-14] MEDS: METOPROLOL TAR 50 MG TAB PO SCH (08:05)
[2019-02-14] MEDS ORDERED: POTASSIUM CL SA 10 MEQ TAB PO ONE ×2 (08:25→11:17)
--- NOTE | 2019-02-14 11:02 | EKG ---
Test Date: 2019-02-14 Test Time: 07:43:44 Game Designer: LIZZIE MEASUREMENT RESULTS: Intervals: Rate: 71 SC: 162 QRSD: 102 QT: 438 QTc: 475 Margie: P: 60 SC: 162 QRS: 36 T: 92 INTERPRETIVE STATEMENTS: Normal sinus rhythm Minimal voltage criteria for LVH, may be normal variant Nonspecific T wave abnormality Prolonged QT Abnormal ECG Compared to ECG 02/13/2019 08:04:26 T-wave abnormality now present Prolonged QT interval now present Sinus tachycardia no longer present Electronically Signed On 02-14-19 11:01:04 CDT by Jayson Wood
--- NOTE | 2019-02-14 11:10 | RAD REPORT ---
EXAM DESCRIPTION: US - Renal Ultrasound-Complete - 02/14/2019 10:47 am CLINICAL HISTORY: Acute kidney injury COMPARISON: September 2017 FINDINGS: The right kidney measures 10.0 x 5.2 x 5.2 cm. The left kidney measures 12.4 x 5.6 x 6.7 cm. Cortical thickness is normal. Both kidneys show a prominent increase in cortical echogenicity ind icating underlying medical renal disease. This matches the prior study. Size differential generally m atches the prior study. Variation in size measurements is typically associated with differences in te chnique and image selection. No hydronephrosis or suspicious renal mass. No bladder wall thickening or mass. No intraluminal stone or mass. IMPRESSION: Prominent medical renal disease findings matching prior study. No hydronephrosis or suspicious renal mass. No other significant findings.
[2019-02-14] MEDS: NITROGLYCERIN 1 GM PKT TD SCH (12:03)
[2019-02-14] MEDS: FUROSEMIDE 40 MG/4 ML VIAL IV SCH (12:03)
--- NOTE | 2019-02-14 12:56 | PN ---
Mr. Vazquez's blood pressure has been a little better, but this morning it is in bad shape again. I t hink we need to increase the hydralazine to 200 mg a day, try and replete his potassium, and I suspec t his renal injury may be very severe and rather permanent. Hopefully, he will not need to be on lila lysis. Dr. Blancas is following him. GAETANO/RAFAEL Voice ID: [id number] Report ID: [id number]
--- NOTE | 2019-02-14 15:40 | PN ---
Date of Progress Note: 02/14/2019 Subjective: Patient was admitted with urgent hypertension. Patient apparently had chronic kidney di sease with hypertension, seen before 1 year back. After that, patient closed followup. According to the patient, the patient stopped all his blood pressure medications almost 6 months back and tried t o control his blood pressure with diet. Patient had previous admission back in September 2017. At that ti me, his blood pressure was elevated. Patient's workup for secondary hypertension was negative includ ing metanephrine, plasma renin, plasma aldosterone. Patient at this time came with hypertension and found to have cardiomegaly. Echocardiogram has been done over the night. Kidney function is slightl y declined. Creatinine up to 5.2, GFR down to 12. Patient denied any nausea, any vomiting. No hype rkalemia or acidosis. No significant uremic symptoms. Physical Examination: Vital Signs: Blood pressure 178/110, pulse of 73. Chest: Clear to auscultation. Heart: S1, S2. Regular. Abdomen: Soft, nontender. Extremities: Trace edema. Genitourinary: Patient had urine output of 1200. Laboratory Data: Sodium 140, potassium 2.8, bicarb 27, BUN 58, creatinine 5.2, GFR of 12, calcium 8. 4. BNP of 5800. Cortisol still pending. Urinalysis, +3 protein. Workup before including hepatitis panel was negative. Serology was completely negative. As I mentioned, secondary hypertension inclu ding metanephrine, aldosterone, and plasma renin activity were negative. Medications: Current medications the patient on, its include aspirin, heparin, metoprolol 50 b.i.d., Norvasc 10, hydralazine 50 q.i.d., Tylenol, Zofran, tramadol. Assessment And Plan: 1.Acute kidney injury on chronic kidney disease, progression of the disease/secondary to urgent hype rtension. Obstructive uropathy has been ruled out as it is normal size kidney 02/25.4 with a slight disproportion in the kidney size, right kidney slightly smaller than the left comparing to previous u ltrasound. a.I am going to go and repeat secondary hypertension workup. b.I am going to repeat the serology. c.I had long discussion with the patient that if kidney function continue to decline, patient may ne ed to initiate on renal replacement therapy. Currently, I do not see the urgency to initiate that gi juan f there is no hyperkalemia, no acidosis, no uremic symptoms. 2.Urgent hypertension or target organ damage. I do not see hematuria, but we see significant worsen ing on the kidney function. I going to replace the metoprolol with carvedilol, replace the amlodipin e with diltiazem and add Lasix 40 mg and we will add also nitroglycerin patch. We will follow up car diology recommendation. 3.Hypokalemia. We will supplement cautiously. 4.Anemia of chronic kidney disease with the presence of acute kidney disease. Acute light chain dis ease needs to be ruled out. We will send for serum protein electrophoresis. SAMMI Voice ID: [id number] Report ID: [id number]
[2019-02-14] MEDS: CARVEDILOL 12.5 MG TAB PO SCH (17:41)
--- NOTE | 2019-02-14 18:34 | PN ---
Date of Progress Note: 02/14/2019 Patient states he feels considerably better than when he came in. However, he is still having signif icant systolic hypertension, seen by Cardiology, adjustments were made in his medication with no sign ificant change in his renal ultrasound. However, his creatinine remains elevated, awaiting urology e valuation in regard to the possibility of dialysis. We will continue to monitor in ICU. HR/MODL Voice ID: [id number] Report ID: [id number]
[2019-02-14] MEDS ORDERED: DILTIAZEM HCL 180 MG SR CAP PO SCH ×2 (21:00)
[2019-02-15] MEDS: TRAMADOL HCL 50 MG TAB PO PRN (04:09)
[2019-02-15] MEDS: CARVEDILOL 12.5 MG TAB PO SCH (05:09)
[2019-02-15 05:40] LABS: RBC Red Blood Cell Count 3.55 M/uL (4.33-5.43)
[2019-02-15 06:23] LABS: Albumin 2.9 g/dL (3.4-5.0); Ferritin 423.8 ng/mL (26-388); Folic Acid, (Folate) 13.4 ng/mL (3.1-17.5); Phosphorus 4.4 mg/dL (2.5-4.9); Thyroid Stimulating Hormone 2.33 uIU/mL (0.360-3.740)
[2019-02-15 06:25] LABS: Potassium 2.8 mmol/L (3.5-5.1)
[2019-02-15] MEDS: ACETAMINOPHEN 500 MG TAB PO PRN (08:23)
[2019-02-15] MEDS: FUROSEMIDE 40 MG/4 ML VIAL IV SCH (08:26)
[2019-02-15] MEDS: HEPARIN 5000 UNIT/ML 1 ML VIAL SQ SCH ×2 (08:26→20:21)
[2019-02-15] MEDS: ASPIRIN EC 81 MG TAB PO SCH (08:26)
[2019-02-15] MEDS ORDERED: DILTIAZEM HCL 180 MG SR CAP PO SCH (09:00)
[2019-02-15] MEDS: HYDRALAZINE HCL 25 MG TABLET PO SCH ×4 (09:04→20:20)
[2019-02-15] MEDS: NITROGLYCERIN 1 GM PKT TD SCH (09:04)
[2019-02-15 12:09] LABS: Urine Protein/Creatinine Ratio 2.08 ratio (<0.15)
[2019-02-15] MEDS ORDERED: POTASSIUM CL SA 10 MEQ TAB PO ONE (13:13)
[2019-02-15] MEDS: CARVEDILOL 25 MG TAB PO SCH (18:24)
[2019-02-15 18:31] LABS: Rheumatoid Factor NEG (NEG)
--- NOTE | 2019-02-15 19:00 | PN ---
Date of Progress Note: 02/15/2019 Patient is still having problems with his blood pressure. Numerous combinations have been utilized. He does complain of a headache, which I suspect secondary to the nitroglycerin paste. His vital sig ns other than the hypertension and his chemistries are stable, other than a creatinine which remains elevated 5+. Discussion was had with Nephrology. Possibility of dialysis at a future date if he sta ble. We will transfer him to floor care and have him mobilize and see what effect this has on his bl ood pressure before discharging him. HR/MODL Voice ID: [id number] Report ID: [id number]
[2019-02-15] MEDS: DILTIAZEM HCL 120 MG SR CAP PO SCH (20:19)
[2019-02-15] MEDS: SPIRONOLACTONE 25 MG TABLET PO SCH (20:19)
--- NOTE | 2019-02-15 22:57 | PN ---
Date of Progress Note: 02/15/2019 Subjective: The patient was admitted with acute kidney injury, urgent hypertension. Blood pressure started being better controlled. The patient complaining of a headache after placing the nitroglycerin. Physical Examination: Vital Signs: When I saw the patient, blood pressure 156/106. Chest: Clear to auscultation. Heart: S1, S2 regular. Abdomen: Soft, nontender. Extremities: No edema. Laboratory Data: WBC 8.2, H and H 10.9/31.1, platelets of 192. Sodium 140, potassium 2.8, bicarb 26, BUN 52, creatinine 5.2, GFR of 12, calcium of 8.6, uric acid of 8, phos 4.4, Ferritin 423. Protein creatinine still pending. Serology still pending. Current Medications: The patient on, its include. 1. Nitroglycerin patch. 2. Aspirin. 3. Carvedilol 12.5 b.i.d. 4. Diltiazem 80. 5. Hydralazine 50 q.i.d. 6. Spironolactone 25. 7. Lasix 40 daily. 8. Morphine. 9. KCl supplement. Assessment And Plan: 1. Acute kidney injury on chronic kidney disease secondary to hypertension crisis, look to me more chronic. As kidney function still not improving, there is no uremia, no hyperkalemia, no acidosis, I do not see the need for any urgent dialysis for the time being. We will continue to monitor. 2. Hypertension, not controlled. I am going to go ahead and increase his carvedilol to 25, increase his diltiazem to 240 mg and giving the persistent hypokalemia, I am going to increase his spironolactone to 50 mg and we will monitor the patient. 3. I had a long discussion with the patient regarding the need for workup for renal artery stenosis. 4. Hypokalemia. Given the persistent hypertension with the presence of hypokalemia, secondary hyperaldosteronism needs to be ruled out. Had workup before 1 year. His aldosterone was within normal limits, but given that degree of kidney function and the hypokalemic, hyperaldosteronism needs to be ruled out. We will follow up lab. Continue supplement. Increase spironolactone to 25 mg b.i.d. 5. Iron deficiency anemia. H and H are stable. I do not see the need for supplement right now. 6. Secondary hyperparathyroidism. Calcium and phos were at goal. We will monitor. SAMMI Voice ID: [id number] Report ID: [id number] MTDD
[2019-02-16 04:42] LABS: Albumin 2.7 g/dL (3.4-5.0); Magnesium 1.9 mg/dL (1.8-2.4); Phosphorus 5.4 mg/dL (2.5-4.9)
[2019-02-16 04:50] LABS: Potassium 2.9 mmol/L (3.5-5.1)
[2019-02-16] MEDS: CARVEDILOL 25 MG TAB PO SCH ×2 (05:35→17:05)
[2019-02-16] MEDS: SPIRONOLACTONE 25 MG TABLET PO SCH ×2 (08:22→20:35)
[2019-02-16] MEDS: ASPIRIN EC 81 MG TAB PO SCH (08:22)
[2019-02-16] MEDS: FUROSEMIDE 40 MG/4 ML VIAL IV SCH (08:22)
[2019-02-16] MEDS: HYDRALAZINE HCL 25 MG TABLET PO SCH ×3 (08:22→20:34)
[2019-02-16] MEDS: HEPARIN 5000 UNIT/ML 1 ML VIAL SQ SCH ×2 (08:22→20:36)
[2019-02-16] MEDS ORDERED: SPIRONOLACTONE 25 MG TABLET PO SCH (09:00)
[2019-02-16] MEDS ORDERED: POTASSIUM 25 MEQ EFFERV TAB PO ONE (11:56)
[2019-02-16] MEDS ORDERED: POTASSIUM CL 40 MEQ in NA CHLORIDE 0.9% 500 ML IV SCH (12:00)
[2019-02-16] MEDS ORDERED: MAGNESIUM SULFATE 1 gm IVPB 1 GM/100 ML BAG IV ONE (15:00)
[2019-02-16] MEDS: MORPHINE 4 MG/ML SYR IV PRN (15:45)
[2019-02-16] MEDS: DILTIAZEM HCL 120 MG SR CAP PO SCH (20:35)
[2019-02-17 05:15] VITALS: BMI 30.6
[2019-02-17] MEDS: CARVEDILOL 25 MG TAB PO SCH (06:22)
[2019-02-17 06:39] LABS: Albumin 2.6 g/dL (3.4-5.0); Phosphorus 5.2 mg/dL (2.5-4.9); Potassium 3.4 mmol/L (3.5-5.1)
[2019-02-17] MEDS ORDERED: FUROSEMIDE 40 MG TABLET PO SCH (09:00)
[2019-02-17] MEDS: HYDRALAZINE HCL 25 MG TABLET PO SCH ×2 (09:48→13:48)
[2019-02-17] MEDS: ASPIRIN EC 81 MG TAB PO SCH (09:48)
[2019-02-17] MEDS: HEPARIN 5000 UNIT/ML 1 ML VIAL SQ SCH (09:49)
[2019-02-17] MEDS: SPIRONOLACTONE 25 MG TABLET PO SCH (09:52)
[2019-02-17 11:38] VITALS: O2SAT 95
--- NOTE | 2019-02-17 12:56 | P.PN ---
Subjective Date of Service: 02/17/19 Chief Complaint: Malignant hypertension Subjective: New changes Pt admitted with HTN urgency and headache today no new complaints BP controlled K 3.4, will replace Can be discharged from nephrology point of view to follow with nephrology clinic in 2-3 wks Physical Examination - Vital Signs Temperature: 97.7 F Blood Pressure: 132/87 Pulse: 73 Respirations: 16 Pulse Ox (%): 98 - Physical Exam General: Alert, In no apparent distress, Oriented x3, Obese HEENT: Atraumatic Neck: Supple, Without JVD or thyroid abnormality Respiratory: Clear to auscultation bilaterally, Normal air movement Cardiovascular: No edema, Regular rate/rhythm, Normal S1 S2, No gallops, No rubs , No murmurs Gastrointestinal: Soft and benign Assessment And Plan - Plan Acute kidney injury on chronic kidney disease secondary Cr now stable GFR 11 no need for urgent renal replacement therapy no uremic symptoms , acidosis, fluid overload or hyperkalmeia HTN controlled now hypokalemia with HTN need to R/o renal artery stenosis vs hyperaldosteronsim Cont Aldactone mild anemiea H/H stable
[2019-02-17] MEDS ORDERED: POTASSIUM 25 MEQ EFFERV TAB PO ONE (13:00)
[2019-02-17 16:21] VITALS: BP 133/91; TEMP 98.2
--- NOTE | 2019-02-17 18:52 | RAD REPORT ---
EXAM DESCRIPTION: NM VENT PERFUSION VQ SCAN CLINICAL HISTORY: Shortness of breath. COMPARISON: Portable chest February 16, 2019 TECHNIQUE: The patient was administered approximately 20 millicuries Xenon 133 gas. First breath, equilibrium and washout views obtained. The patient was then administered approximately 7 millicuries Tc 99M MAA. Anterior, posterior, lateral and oblique views of the lungs were taken as an 8 view protocol. FINDINGS: Ventilation imaging shows no focal defect. There is incomplete washout of the radiopharmaceutical resulting in moderate severity diffuse bilateral air trapping, Perfusion defects show no lobar or segmental defects. No suspicious perfusion defect is identifiable. There is slight heterogeneity of the distribution of the radiopharmaceutical. IMPRESSION: 1. Normal to low probability VQ scan for pulmonary embolism. No suspicious perfusion finding is noted. 2. Diffuse moderate severity air trapping with no ventilation defect.
[2019-02-17 19:02] LABS: HIV AG/AB 4TH GEN Non-reactive (Non-reactive)
--- NOTE | 2019-02-17 19:03 | PN ---
Date of Progress Note: 02/16/2019 Subjective: Patient doing better, ambulating. Blood pressure been controlled very well. Physical Examination: Vital Signs: Blood pressure 141/87, pulse of 74. Chest: Clear to auscultation. Heart: S1, S2. Regular. Abdomen: Soft, nontender. Extremities: No edema. Laboratory Data: H and H 10.9/31.1. Sodium 137, potassium 2.9, bicarb 26, BUN 57, creatinine 5.6, c alcium 8.4, phosphorus 5.4, magnesium 1.9, albumin 2.7. PTH 163. Cortisol of 14. Aldosterone still pending. B12 with 383. TSAT of 28, ferritin 423. Current Medications: The patient on, its include: 1.Carvedilol 25 b.i.d. 2.Diltiazem 240. 3.Hydralazine 100 t.i.d. 4.Spironolactone 25 b.i.d. 5.Lasix 40 IV daily. 6.Tramadol. 7.Morphine. Assessment And Plan: 1.Acute kidney injury on advanced chronic kidney disease. Currently, chronic kidney disease, stage 5, nonoliguric, no hyperkalemia, no acidosis. I do not see the urgency to initiate renal replacement therapy for the patient yet. I am going to continue to monitor. 2.Hypertension urgency, questionable renal artery stenosis. Unfortunately, could not do any angiogr am given the advanced kidney disease. Currently, blood pressure well-controlled on current regimen. We will monitor. 3.Questionable renal artery stenosis: Hyperaldosteronism. Continue spironolactone and follow up al dosterone with plan for MRA as outpatient. 4.Hypokalemia secondary possible to hyperaldosteronism. Followup aldosterone and we will monitor. 5.Hypomagnesemia. We will supplement. 6.Secondary hyperparathyroidism: No need for binder or vitamin D. We will monitor his calcium, igor sphorus, and PTH on the goal. 7.Anemia of chronic kidney disease. Continue to monitor H and H on the goal. KIAH/RAFAEL Voice ID: [id number] Report ID: [id number]
--- NOTE | 2019-02-17 19:06 | EKG ---
Test Date: 2019-02-16 Test Time: 15:41:26 Sanitation Director: FARHAD MEASUREMENT RESULTS: Intervals: Rate: 79 [place]: 182 QRSD: 92 QT: 418 QTc: 479 [place]: P: 54 [place]: 182 QRS: 16 T: 92 INTERPRETIVE STATEMENTS: Normal sinus rhythm Possible Left atrial enlargement Left ventricular hypertrophy T wave abnormality, non specific Prolonged QT Abnormal ECG Compared to ECG 02/14/2019 07:43:44 T-wave abnormality still present Electronically Signed On 02-16-19 17:49:51 CDT by Jayson Wood
[2019-02-17 21:40] LABS: Hepatitis C Virus RNA (PCR)log <1.18 log IU/mL
--- NOTE | 2019-02-18 14:18 | RAD REPORT ---
EXAM DESCRIPTION: Juany Single View02/17/2019 7:02 pm CLINICAL HISTORY: Chest pain COMPARISON: 02/13/2019 FINDINGS: The lungs appear clear of acute infiltrate. The heart is mildly enlarged IMPRESSION: No acute abnormalities displayed
--- NOTE | 2019-02-19 02:25 | PN ---
Date of Progress Note: 02/17/2019 Patient had an episode of chest pain where he became short of breath as well. It was central in natu re. He had not been having any significant pain prior to this. At the same time, he was getting IV potassium and he felt that was a correlation. This was discontinued and in the next half hour, the p ain went away. He has been fine ever since and actually his blood pressure is lower than it has been . He was therefore discharged to continue on his blood pressure medication x4. To follow up with Dr Leyla Blancas in 2 weeks and me in 1 week. HR/MODL Voice ID: [id number] Report ID: [id number]
[2019-02-19 13:29] LABS: Vitamin D 1,25-Dihydroxy Total 13 pg/mL (18-72); Vitamin D,1,25-OH2, D2 <8 pg/mL
[2019-02-20 04:03] LABS: HBsAG Nonreactive (Nonreactive)
[2019-02-20 21:11] LABS: Albumin, (SPE) 3.1 g/dL (3.8-4.8); Alpha-1-Globulins 0.3 g/dL (0.2-0.3); Alpha-2-Globulins 0.6 g/dL (0.5-0.9); Gamma Globulins 1.1 g/dL (0.8-1.7); INTERPRETATION REPORT
== END 2019-02-17 17:00 | disposition home or self-care (01) | DRG 305 ==
LOC: ER 07:33 → ERHOLD 09:32 → 3RD-ICU 11:31 → 4TH 02-15 14:15
PROVIDERS: ADMIT Family Medicine; ATTEND Family Medicine
DX: I16.1 Hypertensive emergency (principal); N18.5 Chronic kidney disease, stage 5; N17.9 Acute kidney failure, unspecified; N25.81 Secondary hyperparathyroidism of renal origin; E87.6 Hypokalemia; R79.89 Other specified abnormal findings of blood chemistry; D50.9 Iron deficiency anemia, unspecified; E66.9 Obesity, unspecified; Z68.30 Body mass index [BMI] 30.0-30.9, adult; E83.42 Hypomagnesemia; R07.9 Chest pain, unspecified; I12.0 Hypertensive chronic kidney disease with stage 5 chronic kidney disease or end stage renal disease
CPT/HCPCS: 36415; 70450; 71045; 76770; 78582; 80048; 80069; 81003; 82088; 82435; 82533; 82550; 82570; 82607; 82652; 82728; 82746; 83520; 83540; 83735; 83880; 83970; 84132; 84156; 84165; 84244; 84300; 84443; 84466; 84484; 84550; 84585; 85025; 85044; 85610; 85730; 86021; 86038; 86160; 86225; 86317; 86430; 86704; 86706; 87340; 87389; 87522; 93005; A9540; A9558; J0360; J1644; J1940; J2405; J7040

== ENCOUNTER 2019-05-23 16:34 | Emergency (ER) | payer SELFPAY ==
[2019-05-23] MEDS ORDERED: cloNIDine HCL 0.1 MG TAB ONE (16:58)
[2019-05-23 17:00] LABS: Absolute Lymphocytes (CBC) 1.3 K/uL (0.7-4.9); Basophils % 1.1 % (0-1.3); Hematocrit 36.2 % (39.6-49.0); Lymphocytes % 19.5 % (15.3-44.8); MPV 8.5 fL (7.6-11.3); RBC Red Blood Cell Count 4.16 M/uL (4.33-5.43)
[2019-05-23 17:05] LABS: Protime INR 0.89
--- NOTE | 2019-05-23 17:15 | RAD REPORT ---
EXAM DESCRIPTION: RAD - Chest Single View - 05/23/2019 5:06 pm CLINICAL HISTORY: HTN - poorly controlled Chest pain. COMPARISON: Chest Single View dated 02/16/2019; Chest Single View dated 02/13/2019; Chest Single View dated 09/27/2017 FINDINGS: Portable technique limits examination quality. The lungs are grossly clear. The heart is normal in size. No displaced fractures. IMPRESSION: No acute intrathoracic process suspected.
[2019-05-23 17:26] LABS: ALT/SGPT 33 U/L (12-78); AST/SGOT 23 U/L (15-37); Albumin 3.7 g/dL (3.4-5.0); Alkaline Phosphatase 110 U/L (45-117); BUN Blood Urea Nitrogen 39 mg/dL (7-18); Bicarbonate 23 mmol/L (21-32); Bilirubin Direct < 0.1 mg/dL (0-0.2); Bilirubin Total 0.3 mg/dL (0.2-1.0); Glucose Level 100 mg/dL (74-106); Magnesium 2.4 mg/dL (1.8-2.4); NT PRO-BNP 1011 pg/mL (<125); Potassium 3.6 mmol/L (3.5-5.1); Protein, Total 7.9 g/dL (6.4-8.2); Sodium Level 142 mmol/L (136-145); Troponin (Emerg Dept Use Only) 0.02 ng/mL (0.0-0.045)
[2019-05-23] MEDS ORDERED: ACETAMINOPHEN 500 MG TAB ONE (17:43)
[2019-05-23 18:03] LABS: Urine Blood TRACE (NEG); Urine Glucose NEGATIVE (NEG); Urine Protein 3+ (NEG); Urine pH 5.5 (5.0-7.0)
--- NOTE | 2019-05-23 18:39 | RAD REPORT ---
EXAM DESCRIPTION: CT - Head Brain Wo Cont - 05/23/2019 6:30 pm CLINICAL HISTORY: HEADACHE COMPARISON: Head Brain Wo Cont dated 02/13/2019; Head Brain Wo Cont dated 09/27/2017 TECHNIQUE: All CT scans are performed using dose optimization technique as appropriate and may inclu de automated exposure control or mA/KV adjustment according to patient size. FINDINGS: No intracranial hemorrhage, hydrocephalus or extra-axial fluid collection.No areas of brai n edema or evidence of midline shift. The paranasal sinuses and mastoids are clear. The calvarium is intact. IMPRESSION: No acute intracranial abnormality.
[2019-05-23] MEDS ORDERED: HYDRALAZINE HCL 20 MG/ML VIAL ONE (20:02)
--- NOTE | 2019-05-23 20:57 | ER ---
Nurse's Notes [facility] Name: Manjinder Vazquez Age: 44 yrs Sex: Male : 1975 Arrival Date: 05/23/2019 Time: 16:36 Bed 7 Private MD: Diagnosis: Chronic kidney disease, unspecified Presentation: 05/23 16:36 Presenting complaint: Patient states: "I was at Dr. Nevarez and he sent me here because aa5 my blood pressure was 270/136". Pt denies any symptoms. Transition of care: patient was not received from another setting of care. Onset of symptoms was May 23, 2019. Risk Assessment: Do you want to hurt yourself or someone else? Patient reports no desire to harm self or others. Initial Sepsis Screen: Does the patient meet any 2 criteria? No. Patient's initial sepsis screen is negative. Does the patient have a suspected source of infection? No. Patient's initial sepsis screen is negative. Care prior to arrival: None. 16:36 Method Of Arrival: Ambulatory aa5 16:36 Acuity: THANIA 2 aa5 Historical: - Allergies: 16:39 No Known Allergies; aa5 - Home Meds: 16:39 Cartia XT 240 mg Oral cp24 [Active]; carvedilol 25 mg oral tab [Active]; hydralazine aa5 100 mg Oral tab [Active]; furosemide 40 mg oral tab [Active]; Aspirin Oral [Active]; - PMHx: 16:39 Hypertension; aa5 - PSHx: 16:39 None; aa5 - Immunization history:: Adult Immunizations unknown. - Social history:: Smoking status: Patient/guardian denies using tobacco. - Ebola Screening: : No symptoms or risks identified at this time. Screenin:54 Abuse screen: Denies threats or abuse. Denies injuries from another. Nutritional hb screening: No deficits noted. Tuberculosis screening: No symptoms or risk factors identified. Fall Risk None identified. Assessment: 16:45 General: Appears in no apparent distress. Behavior is calm, cooperative. Pain: Denies hb pain. Neuro: Level of Consciousness is awake, alert, obeys commands, Oriented to person, place, time, situation. Cardiovascular: Heart tones S1 S2 present Capillary refill < 3 seconds Patient's skin is warm and dry. Respiratory: Airway is patent Respiratory effort is even, unlabored, Respiratory pattern is regular, symmetrical, Breath sounds are clear bilaterally. GI: No signs and/or symptoms were reported involving the gastrointestinal system. : No signs and/or symptoms were reported regarding the genitourinary system. EENT: No signs and/or symptoms were reported regarding the EENT system. Derm: Skin is pink, warm \\T\\ dry. Musculoskeletal: No signs and/or symptoms reported regarding the musculoskeletal system. 17:40 Reassessment: Patient appears in no apparent distress at this time. No changes from hb previously documented assessment. Patient and/or family updated on plan of care and expected duration. Pain level reassessed. Patient is alert, oriented x 3, equal unlabored respirations, skin warm/dry/pink. 19:33 General: Appears in no apparent distress. Behavior is calm, cooperative. Pain: Denies mg2 pain. Neuro: Level of Consciousness is awake, alert, obeys commands, Oriented to person, place, time, situation. Cardiovascular: Patient's skin is warm and dry. Respiratory: Airway is patent Respiratory effort is even, unlabored, Respiratory pattern is regular, symmetrical. Derm: Skin is pink, warm \\T\\ dry. Musculoskeletal: No signs and/or symptoms reported regarding the musculoskeletal system. 21:06 Reassessment: Patient and/or family updated on plan of care and expected duration. Pain ea level reassessed. Patient is alert, oriented x 3, equal unlabored respirations, skin warm/dry/pink. Discharge instruction given to patient, verbalized the understanding of instruction, pt left ED ambulatory tolerating well. Vital Signs: 16:39 BP 259 / 161; Pulse 78; Resp 18 S; Temp 98.8(TE); Pulse Ox 98% on R/A; Weight 95.25 kg aa5 (R); Height 5 ft. 9 in. (175.26 cm) (R); Pain 0/10; 17:45 BP 232 / 232; Pulse 74; Resp 18; Pulse Ox 100% on R/A; mg2 18:04 BP 173 / 123; Pulse 69; Resp 19; Pulse Ox 100% on R/A; Pain 0/10; hb 19:05 BP 167 / 107; Pulse 62; Resp 17; Pulse Ox 100% on R/A; mg2 19:53 BP 195 / 126; Pulse 60; Resp 18; Pulse Ox 100% ; ea 20:22 BP 170 / 111; Pulse 62; Resp 18; Pulse Ox 99% on R/A; ea 20:40 BP 167 / 104; Pulse 67; Resp 18; Pulse Ox 99% on R/A; ea 16:39 Body Mass Index 31.01 (95.25 kg, 175.26 cm) aa5 ED Course: 16:36 Patient arrived in ED. aa5 16:37 Triage completed. aa5 16:37 Arm band placed on. aa5 16:45 Patient has correct armband on for positive identification. Placed in gown. Bed in low hb position. Call light in reach. Side rails up X 1. sueding machine operator on. Pulse ox on. NIBP on. 16:46 Joselo Li MD is Attending Physician. kdr 16:51 Inserted saline lock: 20 gauge in right antecubital area, using aseptic technique. hb Blood collected. 17:00 Heena Hernandez, RN is Primary Nurse. hb 17:07 XRAY Chest (1 view) In Process Unspecified. EDMS 17:45 No provider procedures requiring assistance completed. mg2 18:31 CT Head Brain wo Cont In Process Unspecified. EDMS 20:09 Attending Physician role handed off by Joselo Li MD tw4 20:09 Ry Parikh MD is Attending Physician. tw4 20:54 Ry Parikh MD is Attending Physician. tw4 20:55 IV discontinued, intact, bleeding controlled, No redness/swelling at site. Pressure ea dressing applied. Administered Medications: 16:58 Drug: cloNIDine 0.3 mg Route: PO; mg2 17:45 Follow up: Response: Blood pressure is unchanged mg2 17:44 Drug: Tylenol 1000 mg Route: PO; mg2 20:50 Follow up: Response: No adverse reaction; Blood pressure is lowered ea 20:04 Drug: hydrALAZINE 20 mg Route: IV; Rate: bolus; Site: right antecubital; ea Outcome: 20:54 Discharge ordered by . tw4 21:05 Discharged to home ambulatory. ea 21:05 Condition: stable 21:05 Discharge instructions given to patient, Instructed on discharge instructions, follow up and referral plans. medication usage, Demonstrated understanding of instructions, follow-up care, medications, Prescriptions given X 3. 21:07 Patient left the ED. ea Signatures: Dispatcher [employer] EDNY Joselo Li MD MD kdr Genesis Prather, RN RN aa5 Heena Hernandez RN RN Abby Berger RN RN ea Ry Parikh MD MD tw4 Leandro Senior, RN RN mg2
--- NOTE | 2019-05-23 20:58 | EDPHYS ---
Physician Documentation [facility] Name: Manjinder Vazquez Age: 44 yrs Sex: Male : 1975 Arrival Date: 05/23/2019 Time: 16:36 Bed 7 Private MD: ED Physician HPI: 05/24 13:55 This 44 yrs old Male presents to ER via Ambulatory with complaints of High kdr Blood Pressure, sent by Dr. Nevarez. 13:55 The patient has elevated blood pressure and discovered this at home. Onset: The kdr symptoms/episode began/occurred today. Modifying factors: The symptoms are aggravated by Drinking ETOH. Associated signs and symptoms: The patient has no apparent associated signs or symptoms. Severity of symptoms: At its worst the blood pressure was severe, He was without s/s of increased HTN. The patient has not experienced similar symptoms in the past. The patient has been recently seen by a physician: the patient's primary care provider. Historical: - Allergies: 05/23 16:39 No Known Allergies; aa5 - Home Meds: 16:39 Cartia XT 240 mg Oral cp24 [Active]; carvedilol 25 mg oral tab [Active]; hydralazine aa5 100 mg Oral tab [Active]; furosemide 40 mg oral tab [Active]; Aspirin Oral [Active]; - PMHx: 16:39 Hypertension; aa5 - PSHx: 16:39 None; aa5 - Immunization history:: Adult Immunizations unknown. - Social history:: Smoking status: Patient/guardian denies using tobacco. - Ebola Screening: : No symptoms or risks identified at this time. ROS: 05/24 13:55 Constitutional: Negative for fever, chills, and weight loss, Eyes: Negative for injury, kdr pain, redness, and discharge, ENT: Negative for injury, pain, and discharge, Neck: Negative for injury, pain, and swelling, Cardiovascular: Negative for chest pain, palpitations, and edema, Respiratory: Negative for shortness of breath, cough, wheezing, and pleuritic chest pain, Abdomen/GI: Negative for abdominal pain, nausea, vomiting, diarrhea, and constipation, Back: Negative for injury and pain, : Negative for injury, bleeding, discharge, and swelling, MS/Extremity: Negative for injury and deformity, Skin: Negative for injury, rash, and discoloration, Neuro: Negative for headache, weakness, numbness, tingling, and seizure activity. Psych: Negative for depression, anxiety, suicide ideation, homicidal ideation, and hallucinations, Allergy/Immunology: Negative for hives, rash, and allergies, Endocrine: Negative for neck swelling, polydipsia, polyuria, polyphagia, and marked weight changes, Hematologic/Lymphatic: Negative for swollen nodes, abnormal bleeding, and unusual bruising. Exam: 13:55 Constitutional: This is a well developed, well nourished patient who is awake, alert, kdr and in no acute distress. Head/Face: Normocephalic, atraumatic. Eyes: Pupils equal round and reactive to light, extra-ocular motions intact. Lids and lashes normal. Conjunctiva and sclera are non-icteric and not injected. Cornea within normal limits. Periorbital areas with no swelling, redness, or edema. Neck: Trachea midline, no thyromegaly or masses palpated, and no cervical lymphadenopathy. Supple, full range of motion without nuchal rigidity, or vertebral point tenderness. No Meningismus. Chest/axilla: Normal chest wall appearance and motion. Nontender with no deformity. No lesions are appreciated. Cardiovascular: Regular rate and rhythm with a normal S1 and S2. No gallops, murmurs, or rubs. Normal PMI, no JVD. No pulse deficits. Respiratory: Lungs have equal breath sounds bilaterally, clear to auscultation and percussion. No rales, rhonchi or wheezes noted. No increased work of breathing, no retractions or nasal flaring. Abdomen/GI: Soft, non-tender, with normal bowel sounds. No distension or tympany. No guarding or rebound. No evidence of tenderness throughout. Back: No spinal tenderness. No costovertebral tenderness. Full range of motion. Skin: Warm, dry with normal turgor. Normal color with no rashes, no lesions, and no evidence of cellulitis. MS/ Extremity: Pulses equal, no cyanosis. Neurovascular intact. Full, normal range of motion. Neuro: Awake and alert, GCS 15, oriented to person, place, time, and situation. Cranial nerves II-XII grossly intact. Motor strength 5/5 in all extremities. Sensory grossly intact. Cerebellar exam normal. Normal gait. Psych: Awake, alert, with orientation to person, place and time. Behavior, mood, and affect are within normal limits. Vital Signs: 05/23 16:39 BP 259 / 161; Pulse 78; Resp 18 S; Temp 98.8(TE); Pulse Ox 98% on R/A; Weight 95.25 kg aa5 (R); Height 5 ft. 9 in. (175.26 cm) (R); Pain 0/10; 17:45 BP 232 / 232; Pulse 74; Resp 18; Pulse Ox 100% on R/A; mg2 18:04 BP 173 / 123; Pulse 69; Resp 19; Pulse Ox 100% on R/A; Pain 0/10; hb 19:05 BP 167 / 107; Pulse 62; Resp 17; Pulse Ox 100% on R/A; mg2 19:53 BP 195 / 126; Pulse 60; Resp 18; Pulse Ox 100% ; ea 20:22 BP 170 / 111; Pulse 62; Resp 18; Pulse Ox 99% on R/A; ea 20:40 BP 167 / 104; Pulse 67; Resp 18; Pulse Ox 99% on R/A; ea 16:39 Body Mass Index 31.01 (95.25 kg, 175.26 cm) aa5 MDM: 20:54 Patient medically screened. 05/24 13:55 Data reviewed: vital signs, nurses notes, lab test result(s), radiologic studies. kdr Counseling: I had a detailed discussion with the patient and/or guardian regarding: the historical points, exam findings, and any diagnostic results supporting the discharge/admit diagnosis, lab results, the need for outpatient follow up. 05/23 16:47 Order name: Basic Metabolic Panel; Complete Time: 20:49 kdr 05/23 20:49 Interpretation: Normal except: CL 112; BUN 39; CRE 3.69; GFR 18. tw05/23 16:47 Order name: CBC with Diff; Complete Time: 20:49 kdr 05/23 20:49 Interpretation: Normal except: RBC 4.16; HGB 12.2; HCT 36.2. 05/23 16:47 Order name: LFT's; Complete Time: 20:49 kdr 05/23 20:49 Interpretation: Normal except: GLOB 4.2; A/G 0.9. 05/23 16:47 Order name: Magnesium; Complete Time: 20:49 kdr 05/23 20:49 Interpretation: Within normal limits: MG 2.4. 4 05/23 16:47 Order name: NT PRO-BNP; Complete Time: 20:49 kdr 05/23 20:49 Interpretation: Abnormal: NT PRO-BNP 1011. [facility] 05/23 16:47 Order name: PT-INR; Complete Time: 20:49 kdr 05/23 20:49 Interpretation: Within normal limits: PT 10.5. [facility] 05/23 16:47 Order name: Troponin (emerg Dept Use Only); Complete Time: 20:49 kdr 05/23 20:50 Interpretation: Within normal limits: TROPED 0.02. [facility] 05/23 16:47 Order name: XRAY Chest (1 view); Complete Time: 20:49 kdr 05/23 16:47 Order name: EKG; Complete Time: 16:48 kdr 05/23 17:49 Order name: Urine Dipstick--Ancillary (enter results); Complete Time: 20:49 iw 05/23 20:49 Interpretation: Normal except: UBLD TRACE; UPROT 3+. [facility] 05/23 18:22 Order name: CT Head Brain wo Cont; Complete Time: 19:57 kdr 05/23 16:47 Order name: Cardiac monitoring; Complete Time: 16:53 kdr 05/23 16:47 Order name: EKG - Nurse/Tech; Complete Time: 16:53 kdr 05/23 16:47 Order name: IV Saline Lock; Complete Time: 16:53 kdr 05/23 16:47 Order name: Labs collected and sent; Complete Time: 16:53 kdr 05/23 16:47 Order name: O2 Per Protocol; Complete Time: 16:53 kdr 05/23 16:47 Order name: O2 Sat Monitoring; Complete Time: 16:53 kdr Administered Medications: 05/23 16:58 Drug: cloNIDine 0.3 mg Route: PO; mg2 17:45 Follow up: Response: Blood pressure is unchanged mg2 17:44 Drug: Tylenol 1000 mg Route: PO; mg2 20:50 Follow up: Response: No adverse reaction; Blood pressure is lowered ea 20:04 Drug: hydrALAZINE 20 mg Route: IV; Rate: bolus; Site: right antecubital; ea Disposition: 05/23/19 20:54 Discharged to Home. Impression: Chronic kidney disease, unspecified. - Condition is Stable. - Discharge Instructions: Hypertension, Chronic Kidney Disease, Adult, [id number], Managing Your Hypertension. - Prescriptions for hydrazine sulfate (bulk) - take 100 milligram by ORAL route 2 times per day; 30 milligram. Lasix 40 mg Oral Tablet - take 1 tablet by ORAL route once daily for 30 days; 30 tablet. Carvedilol 12.5 mg Oral Tablet - take 2 tablet by ORAL route 2 times per day with food; 60 tablet. - Medication Reconciliation Form, Thank You Letter, Antibiotic Education, Prescription Opioid Use form. - Follow up: Private Physician; When: Upon discharge from the Emergency Department; Reason: Recheck today's complaints, Continuance of care. - Problem is new. - Symptoms have improved. Signatures: Dispatcher [employer] EDMS Joselo Li MD MD [facility] Genesis Prather RN RN aa5 Abby Berger RN RN ea Wadley, Terrence, MD MD tw4 Leandro Senior RN RN mg2 Corrections: (The following items were deleted from the chart) 21:07 20:54 05/23/2019 20:54 Discharged to Home. Impression: Chronic kidney disease, ea unspecified. Condition is Stable. Forms are Medication Reconciliation Form, Thank You Letter, Antibiotic Education, Prescription Opioid Use. Follow up: Private Physician; When: Upon discharge from the Emergency Department; Reason: Recheck today's complaints, Continuance of care. Problem is new. Symptoms have improved. tw4
[2019-05-23 21:33] VITALS: TEMP 98.8
[2019-05-23 21:40] VITALS: O2SAT 99
[2019-05-23 21:41] VITALS: BP 167/104
--- NOTE | 2019-05-24 07:22 | EKG ---
Test Date: 2019-05-23 Test Time: 17:01:44 Agriculture Intern: NÉSTOR MEASUREMENT RESULTS: Intervals: Rate: 70 RI: 164 QRSD: 102 QT: 420 QTc: 453 [place]: P: 51 RI: 164 QRS: 1 T: 76 INTERPRETIVE STATEMENTS: Normal sinus rhythm Moderate voltage criteria for LVH, may be normal variant ST elevation, consider early repolarization, pericarditis, or injury Abnormal ECG Compared to ECG 02/16/2019 15:41:26 no significant change from previous ECG Electronically Signed On 05-24-19 07:22:02 AUDIO VISUAL FACILITIES ENGINEER by Jayson Wood
== END 2019-05-23 21:07 | disposition home or self-care (01) ==
LOC: ER 16:34
DX: N18.9 Chronic kidney disease, unspecified (principal)
CPT/HCPCS: 36415; 70450; 71045; 80048; 80076; 81003; 83735; 83880; 84484; 85025; 85610; 93005; 96374; 99284; J0360

== ENCOUNTER 2020-04-07 21:12 | Emergency (ER) | payer SELFPAY ==
[2020-04-07] MEDS ORDERED: ROCURONIUM 50 MG/5 ML VIAL IV ONE (21:13)
[2020-04-07] MEDS ORDERED: ETOMIDATE 20 MG/10 ML VIAL IV ONE (21:13)
[2020-04-07 21:42] LABS: Absolute Lymphocytes (CBC) 3.1 K/uL (0.7-4.9); Basophils % 1.3 % (0-1.3); Hematocrit 32.3 % (39.6-49.0); Lymphocytes % 26.6 % (15.3-44.8); MPV 7.9 fL (7.6-11.3); RBC Red Blood Cell Count 3.67 M/uL (4.33-5.43)
[2020-04-07] MEDS ORDERED: RSI MEDICATION KIT IV ONE (21:42)
[2020-04-07] MEDS ORDERED: NA CHLORIDE 0.9% 2,000 ML ONE (21:42)
[2020-04-07 21:48] LABS: Protime INR 0.87
--- NOTE | 2020-04-07 21:48 | RAD REPORT ---
EXAM DESCRIPTION: CT - Ct Stroke Brain Wo Cont - 04/07/2020 9:34 pm CLINICAL HISTORY: DECLINING STATE Headache, drowsiness COMPARISON: Head Brain Wo Cont dated 05/23/2019; Head Brain Wo Cont dated 02/13/2019 TECHNIQUE: All CT scans are performed using dose optimization technique as appropriate and may inclu de automated exposure control or mA/KV adjustment according to patient size. FINDINGS: A very large acute intracranial hematoma is present in the region of the right frontal lob e measuring 6.1 x 4.9 cm. Blood product is seen extending into the ventricular system including both lateral ventricles as well as the third and fourth ventricle. Mild blood product also suspected in th e interpeduncular cistern.Right to left midline shift of 18 mm is present. The paranasal sinuses and mastoids are clear. The calvarium is intact. IMPRESSION: Very large acute right frontal intercerebral hematoma as detailed. 18 mm right to left midline shift is evident. The findings were discussed with Nicola Mensah on 04/07/2020 at 9:35 p.m. by telephone.
[2020-04-07] MEDS ORDERED: Nicardipine/NS 25 MG/250 ML KIT IV ONE (21:59)
[2020-04-07] MEDS ORDERED: propofoL 1,000 MG/100 ML VIAL IV ONE (21:59)
[2020-04-07 22:01] LABS: Potassium 3.2 mmol/L (3.5-5.1)
[2020-04-07 22:09] LABS: Urine Blood 2+ (NEG); Urine Glucose TRACE (NEG); Urine Protein 3+ (NEG)
[2020-04-07] MEDS ORDERED: MANNITOL 25% 0 ML IV ONE ×2 (22:16→22:23)
--- NOTE | 2020-04-07 22:46 | EDPHYS ---
Physician Documentation [facility] Name: Manjinder Vazquez Age: 45 yrs Sex: Male : 1975 Arrival Date: 04/07/2020 Time: 21:23 Bed 2 Private MD: ED Physician Herbert Daniel HPI: 04/07 22:29 This 45 yrs old Male presents to ER via EMS with complaints of S/S of Possible mh7 Stroke. 22:29 The patient's problem is reported as altered mental status, decreased responsiveness, a mh7 facial droop, on right, weakness, in the right side of face. Onset: The symptoms/episode began/occurred just prior to arrival, today. Duration: The episode is continuous. Context: the episode(s) was witnessed, by a friend, symptoms became apparent on April 07, 2020, occurred at a friend's home, occurred while the patient was sitting, Possible contributing factors include:. The symptoms are alleviated by nothing. The symptoms are aggravated by nothing. Associated signs and symptoms: Pertinent positives:. Severity of symptoms: At their worst the symptoms were severe just prior to arrival, today, in the emergency department the symptoms are worse markedly. Historical: - Allergies: 21:33 No Known Allergies; dm5 - Home Meds: 22:48 Aspirin Oral [Active]; Cartia XT 240 mg Oral cp24 [Active]; carvedilol 25 mg Oral tab lp1 [Active]; furosemide 40 mg Oral tab [Active]; hydralazine 100 mg Oral tab [Active]; - PMHx: 21:33 Hypertension; dm5 - PSHx: 21:33 None; dm5 - Immunization history:: Adult Immunizations unknown. - Social history:: Smoking status: unknown. ROS: 22:29 Unable to obtain ROS due to obtunded state. mh7 Exam: 22:29 Chest/axilla: Normal chest wall appearance and motion. Nontender with no deformity. mh7 No lesions are appreciated. 22:29 Constitutional: The patient appears in obvious distress, severely distressed, obviously ill. 22:29 Head/face: Noted is right facial droop. 22:29 Eyes: Periorbital structures: appear normal, Pupils: constricted, left eye, dilated, in right eye, Conjunctiva: normal, Corneas: are normal, Sclera: no appreciated abnormality, Nystagmus: is not appreciated. 22:29 Neck: External neck: is normal. 22:29 Cardiovascular: Rate: tachycardic, Rhythm: regular, Pulses: no pulse deficits are appreciated. 22:36 Respiratory: Lungs have equal breath sounds bilaterally, clear to auscultation and mh7 percussion. No rales, rhonchi or wheezes noted. No increased work of breathing, no retractions or nasal flaring. Abdomen/GI: Soft, non-tender, with normal bowel sounds. No distension or tympany. No guarding or rebound. No evidence of tenderness throughout. Back: No spinal tenderness. No costovertebral tenderness. Full range of motion. Male : Normal genitalia with no discharge or lesions. Skin: Warm, dry with normal turgor. Normal color with no rashes, no lesions, and no evidence of cellulitis. 22:36 Musculoskeletal/extremity: Extremities: ROM: limited passive range of motion, in all extremities, Circulation is intact in all extremities. Pulses: are normal with no appreciated deficits. 22:36 Neuro: Orientation: unable to test, the patient is intubated, Mentation: unable to test, the patient is comatose, Memory: unable to test, the patient is intubated, Cranial nerves: facial droop noted on right, Cerebellar function: unable to test, the patient is comatose, Motor: unable to test, the patient is comatose, Sensation: unable to test, the patient is comatose, seizure activity, is not displayed by the patient, Abnormal movements: there are no abnormal movements. 22:45 Radiologist reports: Right Frontal Hematoma with bleeding into ventricles, 18 mm mh7 midline shift Vital Signs: 21:30 Pulse 112; Resp 30 A; Pulse Ox 98% on 15% BVM; Weight 99.79 kg; lp1 22:09 BP 268 / 127; lp1 22:15 BP 258 / 124; Pulse 123; Resp 15 A; Temp 97.4(C); Pulse Ox 100% on 100% FiO2 ETT vent; lp1 22:27 BP 222 / 105; Pulse 127; Resp 18 A; Temp 97.4(C); Pulse Ox 100% on 100% FiO2 ETT vent; lp1 22:35 BP 201 / 100; Pulse 127; Resp 19 A; Temp 97.4(C); Pulse Ox 100% on 100% FiO2 ETT vent; lp1 Allen Coma Score: 21:35 Eye Response: none(1). Verbal Response: none(1). Motor Response: flexion lp1 (decorticate)(3). Total: 5. 22:30 Eye Response: none(1). Verbal Response: none(1). Motor Response: none(1). Modifying lp1 Factors: Intubated. Total: 3. Procedures: 22:41 Intubation: Ventilated with 100% NRB prior to procedure. O2 saturation prior to [facility] procedure was 95 %. Intubated orally using # 4 Abe blade with 7.5 mm ETT. Successful on second attempt. Ventilated with Ambu bag. Cricoid pressure applied during procedure. Tube secured with ETT [place] at right side of mouth measured 23 cm at lip. Placement verified by CO2 detector with (+) color change, auscultating bilateral breath sounds, O2 saturation after procedure was 100 %. Patient tolerated well. MDM: 22:41 Differential diagnosis: CVA, TIA, paralysis, Intracranial hemorrhage. Data reviewed: [facility] vital signs, nurses notes, EMS record, lab test result(s), CBC, electrolytes, urinalysis, EKG, radiologic studies, CT scan, plain films. Data interpreted: Pulse oximetry: on ventilator is 100 %. Interpretation: acceptable. Response to treatment: the patient's symptoms have mildly improved after treatment. 22:[address] [facility] 04/07 21:30 Order name: Basic Metabolic Panel; Complete Time: 22:05 2 04/07 21:30 Order name: CBC with Diff; Complete Time: 21:47 mw2 04/07 21:30 Order name: Protime (+inr); Complete Time: 21:51 mw2 04/07 21:30 Order name: Ptt, Activated; Complete Time: 21:51 mw2 04/07 22:07 Order name: Urine Dipstick--Ancillary (enter results) [facility] 04/07 22:26 Order name: Glucose, Ancillary Testing [facility] 04/07 21:30 Order name: CT Stroke Brain w/o Contrast; Complete Time: 21:51 mw2 04/07 21:30 Order name: Stroke CXR 1 View [facility] 04/07 21:30 Order name: EKG; Complete Time: 21:30 [facility] 04/07 21:30 Order name: Accucheck; Complete Time: 22:10 mw2 04/07 21:30 Order name: Cardiac monitoring; Complete Time: 21:47 mw2 04/07 21:30 Order name: EKG - Nurse/Tech; Complete Time: 22:07 mw2 04/07 21:30 Order name: IV Saline Lock; Complete Time: 21:47 mw2 04/07 21:30 Order name: Labs collected and sent; Complete Time: 21:48 mw2 04/07 21:30 Order name: NPO; Complete Time: 21:48 mw2 04/07 21:30 Order name: O2 Per Protocol; Complete Time: 21:48 mw2 04/07 21:30 Order name: O2 Sat Monitoring; Complete Time: 21:48 mw2 04/07 22:07 Order name: Urine Dipstick-Ancillary (obtain specimen); Complete Time: 22:07 mw2 Administered Medications: 21:35 Drug: Etomidate 20 mg {Note: Verbal order during intubation.} Route: IVP; Site: right lp1 antecubital; 22:00 Follow up: Response: No adverse reaction lp1 21:36 Drug: Rocuronium 60 mg {Note: Verbal order during intubation.} Route: IVP; Site: right lp1 antecubital; 22:00 Follow up: Response: No adverse reaction lp1 21:42 Drug: Lidocaine 100 mg {Note: Verbal order per Dr. Daniel.} Route: IVP; Site: right lp1 antecubital; 22:00 Follow up: Response: No adverse reaction lp1 21:54 Drug: Propofol 5 mcg/kg/min {Note: Verbal order per Dr. Daniel.} Route: IV; Rate: lp1 calculated rate; Site: left hand; 22:49 Follow up: IV Status: Infusion continued upon transfer lp1 21:54 Drug: niCARdipine (25mg/250ml) 5 mg/hr Route: IV; Rate: per protocol; Site: right lp1 antecubital; 22:00 Follow up: Rate change 15 mg/hr lp1 22:12 Follow up: Rate change 20 mg/hr lp1 22:49 Follow up: IV Status: Infusion continued upon transfer lp1 22:45 Drug: Keppra 1000 mg Route: IV; Rate: bolus; Site: left hand; lp1 22:49 Follow up: IV Status: Infusion continued upon transfer lp1 Disposition: 04/07/20 22:45 Transfer ordered to [facility]. Diagnosis is Acute Intracranial Hemorrhage. - Reason for transfer: Higher level of care. - Accepting physician is Dr. Arzola. - Condition is Critical. - Problem is new. - Symptoms are unchanged. Signatures: Dispatcher [employer] Ena Clemens RN RN dm5 Joanne Wilson RN RN lp1 Nicola Mensah, PRE PRESS OPERATOR PRE PRESS OPERATOR pm1 Korey Hernández mw2 Herbert Daniel MD MD 7 Corrections: (The following items were deleted from the chart) 21:48 21:30 Stroke Swallow Screen ordered. mw2 lp1 22:50 22:45 04/07/2020 22:45 Transfer ordered to [facility]. Diagnosis is Acute lp1 Intracranial Hemorrhage. Reason for transfer: Higher level of care. Accepting physician is Dr. Arzola. Condition is Critical. Problem is new. Symptoms are unchanged. mh7
--- NOTE | 2020-04-07 22:46 | ER ---
Nurse's Notes [facility] [place] Name: Manjinder Vazquez Age: 45 yrs Sex: Male : 1975 Arrival Date: 04/07/2020 Time: 21:23 Bed 2 Private MD: Diagnosis: Acute Intracranial Hemorrhage Presentation: 04/07 21:30 Chief complaint: EMS states: [id number] out [employer] for sudden onset AMS. EMS reports that dm5 pt deteriorated in route and began to posture a little bit. R sided droop noted upon arrival. Taken immediately to CT. bilateral pupils non-reactive. Physician called to CT. Coronavirus screen:. Ebola Screen: Unable to complete the Ebola screening because:. Initial Sepsis Screen: Does the patient meet any 2 criteria? Altered Mental Status. No. Patient's initial sepsis screen is negative. Does the patient have a suspected source of infection? No. Patient's initial sepsis screen is negative. Risk Assessment: Do you want to hurt yourself or someone else? Unable to obtain. Onset of symptoms was April 07, 2020 at 21:00. 21:30 Method Of Arrival: EMS: [facility] dm5 21:30 Acuity: THANIA 1 dm5 Historical: - Allergies: 21:33 No Known Allergies; dm5 - Home Meds: 22:48 Aspirin Oral [Active]; Cartia XT 240 mg Oral cp24 [Active]; carvedilol 25 mg Oral tab lp1 [Active]; furosemide 40 mg Oral tab [Active]; hydralazine 100 mg Oral tab [Active]; - PMHx: 21:33 Hypertension; dm5 - PSHx: 21:33 None; dm5 - Immunization history:: Adult Immunizations unknown. - Social history:: Smoking status: unknown. Screenin:15 Abuse screen: Denies threats or abuse. Denies injuries from another. Nutritional lp1 screening: No deficits noted. Tuberculosis screening: No symptoms or risk factors identified. Fall Risk Total You Fall Scale indicates High Risk Score (45 or more points). Fall prevention measures have been instituted. Side Rails Up X 2 Placed Close to Nursing Station Frequent Obs/Assessments Occuring. Assessment: 21:33 General: Appears distressed, Behavior is unresponsive. Pain: Unable to use pain scale. lp1 Patient is unresponsive. Neuro: Level of Consciousness is unresponsive, Oriented to none Right pupil fixed, dilated; Posturing noted. Cardiovascular: Patient's skin is warm and dry. Rhythm is sinus tachycardia. Respiratory: Airway is compromised Respiratory effort is weak, Respiratory pattern is snoring. GI: Abdomen is non-distended. Derm: Skin is intact, Skin is dry, Skin is normal. Musculoskeletal: No deficits noted. 22:00 General: Behavior is unresponsive. Neuro: Level of Consciousness is unresponsive. lp1 Cardiovascular: Rhythm is sinus tachycardia. Respiratory: Airway via oral intubation Ventilator assessment: ET Tube: 7.5 23 cm at lip. FiO2: 100%. : Campbell in place to gravity drainage Urine is clear. 22:14 Reassessment: Family at bedside with patient; aware of plan for transfer. lp1 22:23 Reassessment: Report given to JOSEPH Friend for patient transfer to [address] ICU. 22:27 Reassessment: Consent for transfer signed by patient's daughter. 1 22:30 Reassessment: [facility] at bedside for patient transfer. lp1 Vital Signs: 21:30 Pulse 112; Resp 30 A; Pulse Ox 98% on 15% BVM; Weight 99.79 kg; lp1 22:09 BP 268 / 127; lp1 22:15 BP 258 / 124; Pulse 123; Resp 15 A; Temp 97.4(C); Pulse Ox 100% on 100% FiO2 ETT vent; lp1 22:27 BP 222 / 105; Pulse 127; Resp 18 A; Temp 97.4(C); Pulse Ox 100% on 100% FiO2 ETT vent; lp1 22:35 BP 201 / 100; Pulse 127; Resp 19 A; Temp 97.4(C); Pulse Ox 100% on 100% FiO2 ETT vent; lp1 Gloria Coma Score: 21:35 Eye Response: none(1). Verbal Response: none(1). Motor Response: flexion lp1 (decorticate)(3). Total: 5. 22:30 Eye Response: none(1). Verbal Response: none(1). Motor Response: none(1). Modifying lp1 Factors: Intubated. Total: 3. ED Course: 21:[address] code stroke called. mw2 21:23 Patient arrived in ED. rr5 21:25 Herbert Daniel MD is Attending Physician. mh7 21:30 Patient has correct armband on for positive identification. Placed in gown. Bed in low lp1 position. Side rails up X2. stripe matcher on. Pulse ox on. NIBP on. 21:32 Triage completed. dm5 21:33 Inserted saline lock: 18 gauge in right antecubital area, using aseptic technique. By lp1 JOSEPH Wu. Inserted saline lock: 20 gauge in left hand, using aseptic technique. 21:34 CT Stroke Brain w/o Contrast In Process Unspecified. EDMS 21:34 initiated a transfer with Chino Culver from [facility]. mw2 21:35 Arm band placed on right wrist. lp1 21:39 Assisted provider with intubation using 7.5 mm ETT via oral route. ET tube secured at lp1 23cm at the lips. Set up intubation tray. Intubated by Herbert Daniel MD Placement verified by CO2 detector w/ + color change, auscultating bilateral breath sounds, End-tidal CO2 montioring CXR. 21:39 Campbell cath inserted, using sterile technique, 16 Fr., by ED staff, balloon inflated, to lp1 gravity drainage. 21:42 NGT: inserted 14 Fr. other Orally verified placement of air over stomach, verified lp1 return of gastric contents, Placement verified by X-ray, to intermittent suction. 21:47 Ena Zhang, JOSEPH is Primary Nurse. dm5 21:47 Joanne Wilson, JOSEPH is Primary Nurse. lp1 21:47 doc to doc with the physician contracts officer at [facility]. mw2 21:49 Stroke CXR 1 View In Process Unspecified. EDMS 21:56 doc to doc with the neuro surgeon contracts officer at [facility]. mw2 22:13 administrative approval given by Chino Culver RN/ patient has been accepted to [address] to the Neuro ICU/ Dr. Arzola has accepted the patient in transfer/ report to be called [phone]. 22:47 Patient transferred, IV remains in place. lp1 Administered Medications: 21:35 Drug: Etomidate 20 mg {Note: Verbal order during intubation.} Route: IVP; Site: right lp1 antecubital; 22:00 Follow up: Response: No adverse reaction lp1 21:36 Drug: Rocuronium 60 mg {Note: Verbal order during intubation.} Route: IVP; Site: right lp1 antecubital; 22:00 Follow up: Response: No adverse reaction lp1 21:42 Drug: Lidocaine 100 mg {Note: Verbal order per Dr. Daniel.} Route: IVP; Site: right lp1 antecubital; 22:00 Follow up: Response: No adverse reaction lp1 21:54 Drug: Propofol 5 mcg/kg/min {Note: Verbal order per Dr. Daniel.} Route: IV; Rate: lp1 calculated rate; Site: left hand; 22:49 Follow up: IV Status: Infusion continued upon transfer lp1 21:54 Drug: niCARdipine (25mg/250ml) 5 mg/hr Route: IV; Rate: per protocol; Site: right lp1 antecubital; 22:00 Follow up: Rate change 15 mg/hr lp1 22:12 Follow up: Rate change 20 mg/hr lp1 22:49 Follow up: IV Status: Infusion continued upon transfer lp1 22:45 Drug: Keppra 1000 mg Route: IV; Rate: bolus; Site: left hand; lp1 22:49 Follow up: IV Status: Infusion continued upon transfer lp1 Output: 22:40 Urine: 300ml (Campbell); Total: 300ml. lp1 Outcome: 22:45 ER care complete, transfer ordered by [facility] 22:48 Transferred by helicopter to [facility], Transfer form completed. X-rays sent lp1 w/ patient. 22:48 critical 22:48 Instructed on the need for transfer, Patient's daughter and son at bedside with rest of family 22:50 Patient left the ED. lp1 Signatures: Dispatcher [employer] Ena Clemens RN RN dm5 Joanne Wilson RN RN 1 Korey Hernández [facility] Simba Schultz, JOSEPH RN rr5 Herbert Daniel MD MD 7 Corrections: (The following items were deleted from the chart) 22:20 22:18 administrative approval given by Chino Culver RN/ patient has been accepted to [address] to the Neuro ICU/ Dr. Arzola has accepted the patient in transfer/ report to be called [phone] [facility]
[2020-04-07] MEDS ORDERED: LEVETIRACETAM 500 MG/5 ML VIAL IV ONE (22:55)
[2020-04-07] MEDS ORDERED: NA CHLORIDE 0.9% 100 ML ONE (22:55)
[2020-04-07] MEDS ORDERED: MANNITOL 20% 500 ML IV NR (23:00)
[2020-04-08 04:19] VITALS: TEMP 97.4; O2SAT 100
[2020-04-08 04:23] VITALS: BP 201/100
--- NOTE | 2020-04-08 08:43 | RAD REPORT ---
EXAM DESCRIPTION: RAD - Chest Single View - 04/07/2020 9:51 pm CLINICAL HISTORY: stroke Chest pain. COMPARISON: Chest Single View dated 05/23/2019; Chest Single View dated 02/16/2019; Chest Single View d ated 02/13/2019; Chest Single View dated 09/27/2017; Ct Stroke Brain Wo Cont dated 04/07/2020 FINDINGS: Portable technique limits examination quality. Mild to moderate bilateral pulmonary opacities are present likely representing pulmonary edema. The h eart is moderately enlarged. Tip of the endotracheal tube is above the mychal. Enteric tube descends into the upper abdomen.
== END 2020-04-07 22:50 | disposition short-term general hospital (02) ==
LOC: ER 21:12
PROC: 0BH17EZ Insertion of Endotracheal Airway into Trachea, Via Natural or Artificial Opening (ICD-10-PCS; principal; 2020-04-07)
PROC: 5A1935Z Respiratory Ventilation, Less than 24 Consecutive Hours (ICD-10-PCS; 2020-04-07)
DX: I62.9 Nontraumatic intracranial hemorrhage, unspecified (principal); I10 Essential (primary) hypertension; Z79.82 Long term (current) use of aspirin
CPT/HCPCS: 31500; 36415; 51702; 70450; 71045; 80048; 81003; 82947; 85025; 85610; 85730; 93005; 94002; 99291; J1953; J2150; J2704; J7030